=== PATIENT | male | born 1975 | race Caucasian/White ===

== ENCOUNTER 2018-04-04 13:07 | Inpatient (IN) | payer MEDICARE, MEDICAID ==
[2018-04-04] MEDS ORDERED: ZOLPIDEM TARTRATE 10 MG TABLET PO PRN (21:15)
[2018-04-04 21:44] VITALS: BP 140/77
[2018-04-04] MEDS ORDERED: PNEUMOCOCCAL VACCINE POLYVALENT 0.5 ML VIAL [PPSV23] IM ONE (21:45)
[2018-04-04] MEDS ORDERED: NICOTINE 14 MG/24 HOUR PATCH TD PRN (22:00)
[2018-04-04] MEDS ORDERED: MAGNESIUM HYDROXIDE SUSPENSION 30 ML UDCUP PO PRN (22:00)
[2018-04-04] MEDS ORDERED: GuaiFENesin/D-METHORPHAN [SUGAR-FREE] 200-20MG/10 ML SYRUP UDCUP PO PRN (22:00)
[2018-04-04] MEDS ORDERED: LOPERAMIDE HCL 2 MG CAPSULE PO PRN (22:00)
[2018-04-04] MEDS ORDERED: CloNIDine HCL 0.1 MG TABLET PO PRN (22:00)
[2018-04-04] MEDS ORDERED: MAG HYDROX/AL HYDROX/SIMETH ES 30 ML SUSPENSION UDCUP PO PRN (22:00)
[2018-04-04] MEDS ORDERED: ALBUTEROL SULFATE HFA 90 MCG/PUFF 8 GM INHALER IH PRN (22:00)
[2018-04-04] MEDS ORDERED: PETROLATUM,WHITE 71 GM JELLY TP PRN (22:00)
[2018-04-04] MEDS ORDERED: DOCUSATE SODIUM 100 MG CAPSULE PO PRN (22:00)
[2018-04-04] MEDS ORDERED: IBUPROFEN 400 MG TABLET PO PRN (22:00)
[2018-04-04] MEDS ORDERED: GLUCAGON,HUMAN RECOMBINANT 1 MG VIAL IM PRN (22:00)
[2018-04-04] MEDS ORDERED: ONDANSETRON HCL 4 MG TABLET PO PRN (22:00)
[2018-04-05 04:15] VITALS: BP 131/76
[2018-04-05] MEDS: INSULIN LISPRO 100 UNITS/ML SQ PRN ×4 (06:54→21:03)
[2018-04-05 07:54] LABS: BASOPHILS % (AUTO) 0.5 % (0.0-2.0); HEMOGLOBIN 16.4 g/dL (13.5-17.5); LYMPHOCYTES # (AUTO) 2.9 K/uL (1.0-4.8); LYMPHOCYTES % (AUTO) 34.6 % (22.0-44.0); MEAN CORPUSCULAR HEMOGLOBIN 27.7 pg (26.0-34.0); MEAN CORPUSCULAR HGB CONC 34.8 G/dL (31.0-37.0); MEAN CORPUSCULAR VOLUME 80 fL (80-100); MONOCYTES # (AUTO) 0.4 K/uL (0.1-1.0); MONOCYTES % (AUTO) 5.2 % (2.0-9.0); NEUTROPHILS # (AUTO) 4.9 K/uL (1.8-7.7); NEUTROPHILS % (AUTO) 57.7 % (40.0-70.0); PLATELET COUNT (AUTO) 296 K/uL (150-450); RED CELL DISTRIBUTION WIDTH 14.2 % (11.5-14.5)
[2018-04-05 08:21] VITALS: BP 140/62
[2018-04-05 08:21] LABS: HEMOGLOBIN A1C 7.8 % (4.5-6.2)
[2018-04-05 08:33] LABS: ALANINE AMINOTRANSFERASE 45 U/L (12-78); ALBUMIN 3.9 g/dL (3.4-5.0); ALKALINE PHOSPHATASE 100 U/L (46-116); ANION GAP 9 mmol/L (8-16); ASPARTATE AMINOTRANSFERASE 53 U/L (15-37); BILIRUBIN,TOTAL 0.7 mg/dL (0.1-1.0); CALCIUM, TOTAL 9.2 mg/dL (8.8-10.5); CARBON DIOXIDE 31 mmol/L (22-29); CHLORIDE 98 mmol/L (98-107); CHOLESTEROL 130 mg/dL (131-200); CREATININE 0.84 mg/dL (0.60-1.30); FREE T4 (FREE THYROXINE) 1.15 ng/dL (0.76-1.46); GLOMERULAR FILTR. RATE CALC > 60 mL/min (>60); GLUCOSE,RANDOM 186 mg/dL (70-110); HDL CHOLESTEROL 44 mg/dL (40-60); LDL CHOL (CALC.) 64 mg/dL (0-130); POTASSIUM 4.1 mmol/L (3.5-5.1); SODIUM SERUM 138 mmol/L (136-145); THYROID STIMULATING HORMONE 4.66 uIU/mL (0.36-3.74); TOTAL PROTEIN, SERUM 7.5 g/dL (6.4-8.2); TRIGLYCERIDES 110 mg/dL (15-150); UREA NITROGEN, BLOOD 12 mg/dL (7-18)
[2018-04-05] MEDS: HALOPERIDOL 5 MG TABLET PO PRN (09:02)
[2018-04-05] MEDS: LORazepam 2 MG TABLET PO PRN (09:03)
[2018-04-05 09:05] VITALS: BP 138/78
[2018-04-05 11:39] LABS: GLUCOMETER DEV NAME(LOC) BV2X.; GLUCOSE,POINT OF CARE 170 MG/DL (70-110)
[2018-04-05 16:00] VITALS: BP 153/88
[2018-04-05] MEDS: OLANZapine 10 MG TABLET PO SCH (16:32)
[2018-04-05] MEDS: MetFORMIN HCL 850 MG TABLET PO SCH (16:32)
[2018-04-05 17:00] LABS: GLUCOMETER DEV NAME(LOC) BV2X.; GLUCOSE,POINT OF CARE 151 MG/DL (70-110)
[2018-04-05 17:30] VITALS: BP 145/78
[2018-04-05 21:04] LABS: GLUCOMETER DEV NAME(LOC) BV2X.; GLUCOSE,POINT OF CARE 201 MG/DL (70-110)
[2018-04-05 22:10] VITALS: BP 142/77
[2018-04-05] MEDS: ACETAMINOPHEN 325 MG TABLET PO PRN (22:11)
[2018-04-06 04:40] VITALS: BP 111/73
[2018-04-06 06:19] LABS: GLUCOMETER DEV NAME(LOC) BV2X.; GLUCOSE,POINT OF CARE 194 MG/DL (70-110)
[2018-04-06] MEDS: MetFORMIN HCL 850 MG TABLET PO SCH ×2 (07:10→16:49)
[2018-04-06] MEDS: INSULIN LISPRO 100 UNITS/ML SQ PRN ×3 (07:11→22:01)
[2018-04-06 08:17] VITALS: BP 140/61
[2018-04-06] MEDS: OLANZapine 10 MG TABLET PO SCH ×2 (09:12→16:50)
[2018-04-06] MEDS: HALOPERIDOL 5 MG TABLET PO PRN ×2 (10:25→16:49)
[2018-04-06] MEDS: LORazepam 2 MG TABLET PO PRN ×2 (10:25→16:49)
[2018-04-06 11:34] LABS: GLUCOMETER DEV NAME(LOC) BV2X.; GLUCOSE,POINT OF CARE 115 MG/DL (70-110)
[2018-04-06 16:08] LABS: GLUCOMETER DEV NAME(LOC) BV2X.; GLUCOSE,POINT OF CARE 157 MG/DL (70-110)
[2018-04-06 16:28] VITALS: BP 140/89
[2018-04-06] MEDS: DIVALPROEX SODIUM 500 MG ER TABLET PO SCH (16:50)
[2018-04-07 03:15] VITALS: BP 138/82
[2018-04-07 06:19] LABS: GLUCOMETER DEV NAME(LOC) BV2X.; GLUCOSE,POINT OF CARE 140 MG/DL (70-110)
[2018-04-07] MEDS: MetFORMIN HCL 850 MG TABLET PO SCH ×2 (07:02→17:03)
[2018-04-07 08:10] VITALS: BP 152/87
[2018-04-07] MEDS: LORazepam 2 MG TABLET PO PRN ×2 (08:55→14:35)
[2018-04-07] MEDS: OLANZapine 10 MG TABLET PO SCH ×2 (08:55→17:03)
[2018-04-07] MEDS: DIVALPROEX SODIUM 500 MG ER TABLET PO SCH ×2 (08:55→17:03)
[2018-04-07] MEDS: HALOPERIDOL 5 MG TABLET PO PRN ×2 (10:22→14:35)
[2018-04-07] MEDS: INSULIN LISPRO 100 UNITS/ML SQ PRN ×3 (11:16→21:09)
[2018-04-07 11:19] LABS: GLUCOMETER DEV NAME(LOC) BV2X.; GLUCOSE,POINT OF CARE 173 MG/DL (70-110)
[2018-04-07 16:00] VITALS: BP 116/67
[2018-04-07 17:35] LABS: GLUCOMETER DEV NAME(LOC) BV2X.; GLUCOSE,POINT OF CARE 153 MG/DL (70-110)
[2018-04-07 21:49] LABS: GLUCOMETER DEV NAME(LOC) BV2X.; GLUCOSE,POINT OF CARE 144 MG/DL (70-110)
[2018-04-08 06:30] LABS: GLUCOMETER DEV NAME(LOC) BV2X.; GLUCOSE,POINT OF CARE 130 MG/DL (70-110)
[2018-04-08 06:57] VITALS: BP 126/78
[2018-04-08] MEDS: MetFORMIN HCL 850 MG TABLET PO SCH ×2 (07:10→16:43)
[2018-04-08 08:31] VITALS: BP 156/113
[2018-04-08] MEDS: HALOPERIDOL 5 MG TABLET PO PRN (09:06)
[2018-04-08] MEDS: OLANZapine 10 MG TABLET PO SCH ×2 (09:06→16:43)
[2018-04-08] MEDS: DIVALPROEX SODIUM 500 MG ER TABLET PO SCH ×2 (09:06→16:43)
[2018-04-08] MEDS: LORazepam 2 MG TABLET PO PRN (09:06)
[2018-04-08 09:57] VITALS: BP 134/85
[2018-04-08 11:30] LABS: GLUCOMETER DEV NAME(LOC) BV2X.; GLUCOSE,POINT OF CARE 133 MG/DL (70-110)
[2018-04-08 16:18] VITALS: BP 138/79
[2018-04-08 17:00] LABS: GLUCOMETER DEV NAME(LOC) BV2X.; GLUCOSE,POINT OF CARE 141 MG/DL (70-110)
[2018-04-08] MEDS: INSULIN LISPRO 100 UNITS/ML SQ PRN ×2 (17:00→21:08)
[2018-04-08 21:04] LABS: GLUCOMETER DEV NAME(LOC) BV2X.; GLUCOSE,POINT OF CARE 156 MG/DL (70-110)
[2018-04-09 05:56] VITALS: BP 132/83
[2018-04-09 06:24] LABS: GLUCOMETER DEV NAME(LOC) BV2X.; GLUCOSE,POINT OF CARE 126 MG/DL (70-110)
[2018-04-09] MEDS: MetFORMIN HCL 850 MG TABLET PO SCH ×2 (07:08→16:16)
[2018-04-09] MEDS: DIVALPROEX SODIUM 500 MG ER TABLET PO SCH ×2 (08:23→16:17)
[2018-04-09] MEDS: OLANZapine 10 MG TABLET PO SCH ×2 (08:23→16:17)
[2018-04-09 09:28] VITALS: BP 140/94
[2018-04-09] MEDS: LORazepam 2 MG TABLET PO PRN (11:27)
[2018-04-09] MEDS: HALOPERIDOL 5 MG TABLET PO PRN (11:27)
[2018-04-09 11:34] LABS: GLUCOMETER DEV NAME(LOC) BV2X.; GLUCOSE,POINT OF CARE 134 MG/DL (70-110)
[2018-04-09 16:09] VITALS: BP 158/103
[2018-04-09 16:38] LABS: GLUCOMETER DEV NAME(LOC) BV2X.; GLUCOSE,POINT OF CARE 118 MG/DL (70-110)
[2018-04-09 19:01] VITALS: BP 140/88
[2018-04-09] MEDS: INSULIN LISPRO 100 UNITS/ML SQ PRN (20:41)
[2018-04-09 20:44] LABS: GLUCOMETER DEV NAME(LOC) BV2X.; GLUCOSE,POINT OF CARE 165 MG/DL (70-110)
[2018-04-09 22:31] VITALS: BP 151/99
[2018-04-09] MEDS: ACETAMINOPHEN 325 MG TABLET PO PRN (22:31)
[2018-04-10 00:29] VITALS: BP 143/88
[2018-04-10 05:54] LABS: GLUCOMETER DEV NAME(LOC) BV2X.; GLUCOSE,POINT OF CARE 114 MG/DL (70-110)
[2018-04-10] MEDS: MetFORMIN HCL 850 MG TABLET PO SCH (06:02)
[2018-04-10 08:12] LABS: BASOPHILS % (AUTO) 0.4 % (0.0-2.0); EOSINOPHILS % (AUTO) 2.4 % (1.0-6.0); HEMATOCRIT 45.3 % (41-53); HEMOGLOBIN 15.4 g/dL (13.5-17.5); LYMPHOCYTES # (AUTO) 2.7 K/uL (1.0-4.8); LYMPHOCYTES % (AUTO) 38.5 % (22.0-44.0); MEAN CORPUSCULAR HEMOGLOBIN 27.5 pg (26.0-34.0); MEAN CORPUSCULAR VOLUME 81 fL (80-100); MONOCYTES # (AUTO) 0.3 K/uL (0.1-1.0); MONOCYTES % (AUTO) 4.7 % (2.0-9.0); NEUTROPHILS # (AUTO) 3.7 K/uL (1.8-7.7); PLATELET COUNT (AUTO) 230 K/uL (150-450); RED BLOOD CELL COUNT(AUTO) 5.61 MIL/uL (4.50-5.90); RED CELL DISTRIBUTION WIDTH 14.3 % (11.5-14.5)
[2018-04-10] MEDS: OLANZapine 10 MG TABLET PO SCH (08:16)
[2018-04-10] MEDS: DIVALPROEX SODIUM 500 MG ER TABLET PO SCH (08:16)
[2018-04-10] MEDS: ACETAMINOPHEN 325 MG TABLET PO PRN (08:22)
[2018-04-10 08:26] VITALS: BP 144/98
[2018-04-10 08:51] LABS: ALANINE AMINOTRANSFERASE 45 U/L (12-78); ALBUMIN 3.4 g/dL (3.4-5.0); ALKALINE PHOSPHATASE 82 U/L (46-116); ANION GAP 7 mmol/L (8-16); ASPARTATE AMINOTRANSFERASE 53 U/L (15-37); BILIRUBIN,TOTAL 0.6 mg/dL (0.1-1.0); CALCIUM, TOTAL 8.9 mg/dL (8.8-10.5); CARBON DIOXIDE 32 mmol/L (22-29); CHLORIDE 101 mmol/L (98-107); CREATININE 0.68 mg/dL (0.60-1.30); GLOMERULAR FILTR. RATE CALC > 60 mL/min (>60); GLUCOSE,RANDOM 136 mg/dL (70-110); POTASSIUM 4.1 mmol/L (3.5-5.1); SODIUM SERUM 140 mmol/L (136-145); TOTAL PROTEIN, SERUM 7.2 g/dL (6.4-8.2); UREA NITROGEN, BLOOD 13 mg/dL (7-18); VALPROIC ACID 56 mcg/mL (50-100)
[2018-04-10 11:29] LABS: GLUCOMETER DEV NAME(LOC) BV2X.; GLUCOSE,POINT OF CARE 113 MG/DL (70-110)
[2018-04-10] MEDS ORDERED: DIVA500T52 PO (12:36)
[2018-04-10] MEDS ORDERED: OLAN10TA3 PO (12:36)
[2018-04-10] MEDS ORDERED: METF-445 PO (12:36)
[2018-04-11] MEDS ORDERED: CLON.5 PO (00:31)
[2018-04-11] MEDS ORDERED: RISP.5 PO (00:31)
[2018-04-11] MEDS ORDERED: QUET200T PO (00:31)
== END 2018-04-10 14:20 | disposition home or self-care (01) | DRG 885 ==
LOC: EDSTATUS 13:08 → B2S 21:18
PROVIDERS: ADMIT Psychiatry & Neurology Child & Adolescent Psychiatry; ATTEND Psychiatry & Neurology Child & Adolescent Psychiatry
DX: F25.0 Schizoaffective disorder, bipolar type (principal); I10 Essential (primary) hypertension; F41.9 Anxiety disorder, unspecified; M54.9 Dorsalgia, unspecified; F12.90 Cannabis use, unspecified, uncomplicated; F14.90 Cocaine use, unspecified, uncomplicated; E11.9 Type 2 diabetes mellitus without complications; F10.10 Alcohol abuse, uncomplicated; E03.9 Hypothyroidism, unspecified; G89.29 Other chronic pain; F99 Mental disorder, not otherwise specified; Z59.0 Homelessness; Z91.5 Personal history of self-harm
CPT/HCPCS: 83036; 84439; 84443; 87081

== ENCOUNTER 2018-04-14 17:37 | Emergency (ER) | payer MEDICARE, OTHER ==
[~2018-04-14] VITALS: Ht 175.3 cm; Wt 154.5 kg
[~2018-04-14 17:37] MED LIST: AMLO-511 PO; BUPR-93 PO; CARV3 PO; CLON.5 PO; DIVA500T52 PO; METF-445 PO; OLAN10TA3 PO; QUET200T PO; RISP.5 PO
[2018-04-14 18:04] LABS: GLUCOSE,POINT OF CARE 215 MG/DL (70-110)
[2018-04-14 19:33] VITALS: BP 138/89
[2018-04-14] MEDS ORDERED: KETOROLAC TROMETHAMINE 60 MG/2 ML VIAL IM ONE (19:45)
== END 2018-04-14 20:06 | disposition home or self-care (01) ==
LOC: EMS 17:37
DX: M25.562 Pain in left knee (principal); M54.9 Dorsalgia, unspecified; F31.9 Bipolar disorder, unspecified; F20.9 Schizophrenia, unspecified; F17.210 Nicotine dependence, cigarettes, uncomplicated; Z79.84 Long term (current) use of oral hypoglycemic drugs; Z79.899 Other long term (current) drug therapy; W18.39XA Other fall on same level, initial encounter; Y93.01 Activity, walking, marching and hiking; Y92.89 Other specified places as the place of occurrence of the external cause; Y99.8 Other external cause status
CPT/HCPCS: 82962; 96372; 99283; J1885

== ENCOUNTER 2018-05-12 11:39 | Inpatient (IN) | payer MEDICARE, MEDICAID ==
[~2018-05-12 11:39] MED LIST changes: -BUPR-93 PO; -CLON.5 PO; -QUET200T PO; -RISP.5 PO
[2018-05-12] MEDS ORDERED: ZOLPIDEM TARTRATE 10 MG TABLET PO PRN (19:45)
[2018-05-12] MEDS ORDERED: LORazepam 2 MG TABLET PO PRN (19:45)
[2018-05-12 19:51] VITALS: BP 132/72
[2018-05-12] MEDS ORDERED: PNEUMOCOCCAL VACCINE POLYVALENT 0.5 ML VIAL [PPSV23] IM ONE (20:00)
[2018-05-12] MEDS ORDERED: CloNIDine HCL 0.1 MG TABLET PO PRN (21:30)
[2018-05-12] MEDS ORDERED: ACETAMINOPHEN 325 MG TABLET PO PRN (21:30)
[2018-05-12] MEDS ORDERED: GLUCAGON,HUMAN RECOMBINANT 1 MG VIAL IM PRN (21:30)
[2018-05-12] MEDS ORDERED: MAG HYDROX/AL HYDROX/SIMETH ES 30 ML SUSPENSION UDCUP PO PRN (21:30)
[2018-05-12] MEDS ORDERED: ONDANSETRON HCL 4 MG TABLET PO PRN (21:30)
[2018-05-12] MEDS ORDERED: ALBUTEROL SULFATE HFA 90 MCG/PUFF 8 GM INHALER IH PRN (21:30)
[2018-05-12] MEDS ORDERED: GuaiFENesin/D-METHORPHAN [SUGAR-FREE] 200-20MG/10 ML SYRUP UDCUP PO PRN (21:30)
[2018-05-12] MEDS ORDERED: NICOTINE 14 MG/24 HOUR PATCH TD PRN (21:30)
[2018-05-12] MEDS ORDERED: MAGNESIUM HYDROXIDE SUSPENSION 30 ML UDCUP PO PRN (21:30)
[2018-05-12] MEDS ORDERED: PETROLATUM,WHITE 71 GM JELLY TP PRN (21:30)
[2018-05-12] MEDS ORDERED: IBUPROFEN 400 MG TABLET PO PRN (21:30)
[2018-05-12] MEDS ORDERED: DOCUSATE SODIUM 100 MG CAPSULE PO PRN (21:30)
[2018-05-12] MEDS ORDERED: LOPERAMIDE HCL 2 MG CAPSULE PO PRN (21:30)
[2018-05-12] MEDS: INSULIN LISPRO 100 UNITS/ML SQ PRN (21:42)
[2018-05-13 02:48] VITALS: BP 171/90
[2018-05-13 03:50] VITALS: BP 140/70
[2018-05-13 06:29] LABS: GLUCOMETER DEV NAME(LOC) BV3N.; GLUCOSE,POINT OF CARE 304 MG/DL (70-110)
[2018-05-13] MEDS: MetFORMIN HCL 850 MG TABLET PO SCH ×2 (06:32→16:59)
[2018-05-13] MEDS: INSULIN LISPRO 100 UNITS/ML SQ PRN ×4 (06:48→21:00)
[2018-05-13 08:00] VITALS: BP 144/92
[2018-05-13 08:22] LABS: BASOPHILS % (AUTO) 0.4 % (0.0-2.0); EOSINOPHILS % (AUTO) 2.5 % (1.0-6.0); HEMATOCRIT 45.4 % (41-53); HEMOGLOBIN 15.3 g/dL (13.5-17.5); LYMPHOCYTES # (AUTO) 2.7 K/uL (1.0-4.8); LYMPHOCYTES % (AUTO) 35.2 % (22.0-44.0); MEAN CORPUSCULAR HEMOGLOBIN 26.5 pg (26.0-34.0); MEAN CORPUSCULAR HGB CONC 33.8 G/dL (31.0-37.0); MEAN CORPUSCULAR VOLUME 79 fL (80-100); MONOCYTES # (AUTO) 0.3 K/uL (0.1-1.0); MONOCYTES % (AUTO) 3.8 % (2.0-9.0); NEUTROPHILS # (AUTO) 4.5 K/uL (1.8-7.7); NEUTROPHILS % (AUTO) 58.1 % (40.0-70.0); PLATELET COUNT (AUTO) 224 K/uL (150-450); RED BLOOD CELL COUNT(AUTO) 5.78 MIL/uL (4.50-5.90); RED CELL DISTRIBUTION WIDTH 14.2 % (11.5-14.5)
[2018-05-13 08:34] LABS: HEMOGLOBIN A1C 8.6 % (4.5-6.2)
[2018-05-13 08:51] LABS: ALANINE AMINOTRANSFERASE 37 U/L (12-78); ALBUMIN 3.2 g/dL (3.4-5.0); ALKALINE PHOSPHATASE 91 U/L (46-116); ANION GAP 5 mmol/L (8-16); ASPARTATE AMINOTRANSFERASE 45 U/L (15-37); BILIRUBIN,TOTAL 0.5 mg/dL (0.1-1.0); CALCIUM, TOTAL 9.2 mg/dL (8.8-10.5); CARBON DIOXIDE 32 mmol/L (22-29); CHLORIDE 96 mmol/L (98-107); CHOL/HDL RATIO 2.7 (4.2-7.3); CHOLESTEROL 110 mg/dL (131-200); CREATININE 0.74 mg/dL (0.60-1.30); FREE T4 (FREE THYROXINE) 1.17 ng/dL (0.76-1.46); GLOMERULAR FILTR. RATE CALC > 60 mL/min (>60); GLUCOSE,RANDOM 231 mg/dL (70-110); HDL CHOLESTEROL 41 mg/dL (40-60); LDL CHOL (CALC.) 40 mg/dL (0-130); POTASSIUM 3.5 mmol/L (3.5-5.1); SODIUM SERUM 133 mmol/L (136-145); THYROID STIMULATING HORMONE 5.16 uIU/mL (0.36-3.74); TRIGLYCERIDES 146 mg/dL (15-150); UREA NITROGEN, BLOOD 20 mg/dL (7-18)
[2018-05-13] MEDS: CARVEDILOL 3.125 MG TABLET PO SCH ×2 (09:08→16:58)
[2018-05-13] MEDS: HALOPERIDOL 5 MG TABLET PO PRN ×2 (09:08→16:59)
[2018-05-13] MEDS: AmLODIPine BESYLATE 5 MG TABLET PO SCH (09:08)
[2018-05-13 11:09] LABS: GLUCOMETER DEV NAME(LOC) BV3N.; GLUCOSE,POINT OF CARE 229 MG/DL (70-110)
[2018-05-13 16:04] VITALS: BP 135/85
[2018-05-13 16:55] LABS: GLUCOMETER DEV NAME(LOC) BV3N.; GLUCOSE,POINT OF CARE 224 MG/DL (70-110)
[2018-05-13] MEDS: OLANZapine 10 MG TABLET PO SCH (16:58)
[2018-05-13] MEDS: DIVALPROEX SODIUM 500 MG ER TABLET PO SCH (16:58)
[2018-05-13 21:09] LABS: GLUCOMETER DEV NAME(LOC) BV3N.; GLUCOSE,POINT OF CARE 197 MG/DL (70-110)
[2018-05-14 05:20] VITALS: BP 129/82
[2018-05-14 06:10] LABS: GLUCOMETER DEV NAME(LOC) BV3N.; GLUCOSE,POINT OF CARE 185 MG/DL (70-110)
[2018-05-14] MEDS: MetFORMIN HCL 850 MG TABLET PO SCH ×2 (06:10→16:23)
[2018-05-14] MEDS: INSULIN LISPRO 100 UNITS/ML SQ PRN ×4 (06:21→21:06)
[2018-05-14] MEDS: DIVALPROEX SODIUM 500 MG ER TABLET PO SCH ×2 (09:18→16:23)
[2018-05-14] MEDS: CARVEDILOL 3.125 MG TABLET PO SCH ×2 (09:18→16:23)
[2018-05-14] MEDS: AmLODIPine BESYLATE 5 MG TABLET PO SCH (09:18)
[2018-05-14] MEDS: OLANZapine 10 MG TABLET PO SCH ×2 (09:18→16:23)
[2018-05-14 11:30] LABS: GLUCOMETER DEV NAME(LOC) BV3N.; GLUCOSE,POINT OF CARE 156 MG/DL (70-110)
[2018-05-14] MEDS: HALOPERIDOL 5 MG TABLET PO PRN (13:46)
[2018-05-14 16:29] VITALS: BP 157/83
[2018-05-14 17:10] LABS: GLUCOMETER DEV NAME(LOC) BV3N.; GLUCOSE,POINT OF CARE 198 MG/DL (70-110)
[2018-05-14 21:24] LABS: GLUCOMETER DEV NAME(LOC) BV3N.; GLUCOSE,POINT OF CARE 188 MG/DL (70-110)
[2018-05-15 01:44] VITALS: BP 142/90
[2018-05-15] MEDS: MetFORMIN HCL 850 MG TABLET PO SCH (06:34)
[2018-05-15] MEDS: INSULIN LISPRO 100 UNITS/ML SQ PRN (06:44)
[2018-05-15 08:03] VITALS: BP 140/82
[2018-05-15] MEDS: DIVALPROEX SODIUM 500 MG ER TABLET PO SCH (08:26)
[2018-05-15] MEDS: OLANZapine 10 MG TABLET PO SCH (08:26)
[2018-05-15] MEDS: CARVEDILOL 3.125 MG TABLET PO SCH (08:26)
[2018-05-15] MEDS: AmLODIPine BESYLATE 5 MG TABLET PO SCH (08:27)
[2018-05-15 11:59] LABS: GLUCOMETER DEV NAME(LOC) BV3N.; GLUCOSE,POINT OF CARE 138 MG/DL (70-110)
== END 2018-05-15 13:45 | disposition home or self-care (01) | DRG 885 ==
LOC: B3A 19:36
PROVIDERS: ADMIT Psychiatry & Neurology Child & Adolescent Psychiatry; ATTEND Psychiatry & Neurology Child & Adolescent Psychiatry
DX: F25.9 Schizoaffective disorder, unspecified (principal); E87.1 Hypo-osmolality and hyponatremia; I10 Essential (primary) hypertension; E11.9 Type 2 diabetes mellitus without complications; G89.29 Other chronic pain; M54.9 Dorsalgia, unspecified; F41.9 Anxiety disorder, unspecified; F12.90 Cannabis use, unspecified, uncomplicated; F14.90 Cocaine use, unspecified, uncomplicated; Y90.9 Presence of alcohol in blood, level not specified; E03.9 Hypothyroidism, unspecified; F10.10 Alcohol abuse, uncomplicated; Z71.41 Alcohol abuse counseling and surveillance of alcoholic
CPT/HCPCS: 83036; 84439; 84443; 87081; 90686; 90732

== ENCOUNTER 2018-05-15 18:53 | Emergency (ER) | payer MEDICARE, OTHER ==
[~2018-05-15] VITALS: Ht 165.1 cm; Wt 159.1 kg
[2018-05-15 20:29] LABS: GLUCOSE,POINT OF CARE 238 MG/DL (70-110)
[2018-05-15 22:36] LABS: BASOPHILS % (AUTO) 0.7 % (0.0-2.0); EOSINOPHILS % (AUTO) 1.2 % (1.0-6.0); HEMATOCRIT 46.4 % (41-53); HEMOGLOBIN 15.6 g/dL (13.5-17.5); LYMPHOCYTES # (AUTO) 2.4 K/uL (1.0-4.8); LYMPHOCYTES % (AUTO) 22.9 % (22.0-44.0); MEAN CORPUSCULAR HEMOGLOBIN 26.6 pg (26.0-34.0); MEAN CORPUSCULAR HGB CONC 33.6 G/dL (31.0-37.0); MEAN CORPUSCULAR VOLUME 79 fL (80-100); MONOCYTES # (AUTO) 0.5 K/uL (0.1-1.0); MONOCYTES % (AUTO) 4.6 % (2.0-9.0); NEUTROPHILS # (AUTO) 7.5 K/uL (1.8-7.7); NEUTROPHILS % (AUTO) 70.6 % (40.0-70.0); PLATELET COUNT (AUTO) 235 K/uL (150-450); RED BLOOD CELL COUNT(AUTO) 5.84 MIL/uL (4.50-5.90); RED CELL DISTRIBUTION WIDTH 14.4 % (11.5-14.5)
[2018-05-15] MEDS ORDERED: KETOROLAC TROMETHAMINE 60 MG/2 ML VIAL IM ONE (22:45)
[2018-05-15 22:46] VITALS: BP 141/83
[2018-05-15 22:47] LABS: ANION GAP 10 mmol/L (8-16); CALCIUM, TOTAL 9.2 mg/dL (8.8-10.5); CARBON DIOXIDE 25 mmol/L (22-29); CHLORIDE 98 mmol/L (98-107); CREATININE 0.83 mg/dL (0.60-1.30); GLOMERULAR FILTR. RATE CALC > 60 mL/min (>60); GLUCOSE,RANDOM 290 mg/dL (70-110); SODIUM SERUM 133 mmol/L (136-145); UREA NITROGEN, BLOOD 19 mg/dL (7-18)
[2018-05-15 22:53] LABS: ALANINE AMINOTRANSFERASE 36 U/L (12-78); ALBUMIN 3.4 g/dL (3.4-5.0); ALKALINE PHOSPHATASE 98 U/L (46-116); ASPARTATE AMINOTRANSFERASE 39 U/L (15-37); BILIRUBIN,TOTAL 0.6 mg/dL (0.1-1.0); LIPASE 185 U/L (73-393)
== END 2018-05-15 23:23 | disposition home or self-care (01) ==
LOC: EMS 18:54
DX: R10.84 Generalized abdominal pain (principal); M54.5 Low back pain; G89.29 Other chronic pain; E11.9 Type 2 diabetes mellitus without complications; I10 Essential (primary) hypertension; F41.9 Anxiety disorder, unspecified; F31.9 Bipolar disorder, unspecified; F20.9 Schizophrenia, unspecified; F17.210 Nicotine dependence, cigarettes, uncomplicated; F12.90 Cannabis use, unspecified, uncomplicated; F14.90 Cocaine use, unspecified, uncomplicated; Z79.899 Other long term (current) drug therapy; Z79.84 Long term (current) use of oral hypoglycemic drugs
CPT/HCPCS: 80053; 82962; 83690; 85025; 96372; 99283; J1885

== ENCOUNTER 2018-05-16 03:35 | Emergency (ER) | payer MEDICARE, MEDICAID ==
[~2018-05-16] VITALS: Ht 172.7 cm; Wt 140.0 kg
[2018-05-16 03:39] VITALS: BP 138/98
== END 2018-05-16 05:45 | disposition left against medical advice (07) ==
LOC: EMS 03:35
DX: F32.9 Major depressive disorder, single episode, unspecified (principal); F41.9 Anxiety disorder, unspecified; F31.9 Bipolar disorder, unspecified; E11.9 Type 2 diabetes mellitus without complications; I10 Essential (primary) hypertension; F20.9 Schizophrenia, unspecified; F17.210 Nicotine dependence, cigarettes, uncomplicated; F12.90 Cannabis use, unspecified, uncomplicated; F14.90 Cocaine use, unspecified, uncomplicated; G89.29 Other chronic pain; Z53.21 Procedure and treatment not carried out due to patient leaving prior to being seen by health care provider

== ENCOUNTER 2018-05-16 12:51 | Emergency (ER) | payer MEDICARE, OTHER ==
[~2018-05-16] VITALS: Ht 172.7 cm; Wt 144.7 kg
[2018-05-16 13:43] LABS: GLUCOSE,POINT OF CARE 343 MG/DL (70-110)
[2018-05-16 14:43] LABS: ANION GAP 0 mmol/L (8-16); CALCIUM, TOTAL 8.7 mg/dL (8.8-10.5); CARBON DIOXIDE 35 mmol/L (22-29); CHLORIDE 99 mmol/L (98-107); CREATININE 0.79 mg/dL (0.60-1.30); GLOMERULAR FILTR. RATE CALC > 60 mL/min (>60); GLUCOSE,RANDOM 318 mg/dL (70-110); POTASSIUM 3.9 mmol/L (3.5-5.1); SODIUM SERUM 134 mmol/L (136-145); UREA NITROGEN, BLOOD 18 mg/dL (7-18)
[2018-05-16 14:49] LABS: ALANINE AMINOTRANSFERASE 43 U/L (12-78); ALBUMIN 3.1 g/dL (3.4-5.0); ALKALINE PHOSPHATASE 80 U/L (46-116); ASPARTATE AMINOTRANSFERASE 51 U/L (15-37); BILIRUBIN,TOTAL 0.4 mg/dL (0.1-1.0); TOTAL PROTEIN, SERUM 6.6 g/dL (6.4-8.2)
[2018-05-16 16:00] VITALS: BP 175/115
[2018-05-16] MEDS ORDERED: MetFORMIN HCL 850 MG TABLET PO ONE (16:00)
[2018-05-16] MEDS ORDERED: AmLODIPine BESYLATE 5 MG TABLET PO ONE (16:00)
[2018-05-16] MEDS ORDERED: DIVALPROEX SODIUM 250 MG DR TABLET PO ONE (16:00)
[2018-05-16] MEDS ORDERED: OLANZapine 5 MG TABLET PO ONE (16:00)
[2018-05-16 16:03] LABS: BASOPHILS % (AUTO) 0.3 % (0.0-2.0); EOSINOPHILS % (AUTO) 1.5 % (1.0-6.0); HEMATOCRIT 43.4 % (41-53); HEMOGLOBIN 14.5 g/dL (13.5-17.5); LYMPHOCYTES # (AUTO) 2.5 K/uL (1.0-4.8); LYMPHOCYTES % (AUTO) 33.7 % (22.0-44.0); MEAN CORPUSCULAR HEMOGLOBIN 26.8 pg (26.0-34.0); MEAN CORPUSCULAR HGB CONC 33.4 G/dL (31.0-37.0); MEAN CORPUSCULAR VOLUME 80 fL (80-100); MONOCYTES # (AUTO) 0.4 K/uL (0.1-1.0); MONOCYTES % (AUTO) 5.7 % (2.0-9.0); NEUTROPHILS # (AUTO) 4.4 K/uL (1.8-7.7); NEUTROPHILS % (AUTO) 58.8 % (40.0-70.0); PLATELET COUNT (AUTO) 222 K/uL (150-450); RED BLOOD CELL COUNT(AUTO) 5.41 MIL/uL (4.50-5.90); RED CELL DISTRIBUTION WIDTH 14.3 % (11.5-14.5)
[2018-05-16 16:12] LABS: AMPHET/METH SCREEN,URINE NEGATIVE (NEGATIVE); BARBITURATE SCREEN, URINE NEGATIVE (NEGATIVE); BENZODIAZEPINES SCREEN,URINE NEGATIVE (NEGATIVE); CANNABINOID SCREEN,URINE POSITIVE (NEGATIVE); COCAINE SCREEN,URINE NEGATIVE (NEGATIVE); METHADONE SCREEN, URINE NEGATIVE (NEGATIVE); OPIATE SCREEN,URINE NEGATIVE (NEGATIVE)
[2018-05-16 16:13] LABS: PHENCYCLIDINE SCREEN,URINE NEGATIVE (NEGATIVE)
== END 2018-05-16 17:04 | disposition home or self-care (01) ==
LOC: EMS 12:52
DX: F20.9 Schizophrenia, unspecified (principal); F17.210 Nicotine dependence, cigarettes, uncomplicated; F12.90 Cannabis use, unspecified, uncomplicated; F14.90 Cocaine use, unspecified, uncomplicated; F41.9 Anxiety disorder, unspecified; F32.9 Major depressive disorder, single episode, unspecified; E11.9 Type 2 diabetes mellitus without complications; I10 Essential (primary) hypertension; Z79.84 Long term (current) use of oral hypoglycemic drugs; Z79.899 Other long term (current) drug therapy
CPT/HCPCS: 36415; 80053; 80307; 82962; 85025; 99284; G0480

== ENCOUNTER 2018-05-16 19:32 | Inpatient (IN) | payer MEDICARE, MEDICAID ==
[~2018-05-16] VITALS: Ht 177.8 cm; Wt 127.1 kg
[2018-05-17 01:27] LABS: BASOPHILS % (AUTO) 0.6 % (0.0-2.0); EOSINOPHILS % (AUTO) 2.7 % (1.0-6.0); HEMATOCRIT 43.6 % (41-53); HEMOGLOBIN 14.4 g/dL (13.5-17.5); LYMPHOCYTES # (AUTO) 3.1 K/uL (1.0-4.8); LYMPHOCYTES % (AUTO) 42.9 % (22.0-44.0); MEAN CORPUSCULAR HEMOGLOBIN 26.5 pg (26.0-34.0); MEAN CORPUSCULAR HGB CONC 33.2 G/dL (31.0-37.0); MEAN CORPUSCULAR VOLUME 80 fL (80-100); MONOCYTES # (AUTO) 0.4 K/uL (0.1-1.0); MONOCYTES % (AUTO) 5.1 % (2.0-9.0); NEUTROPHILS # (AUTO) 3.6 K/uL (1.8-7.7); NEUTROPHILS % (AUTO) 48.7 % (40.0-70.0); PLATELET COUNT (AUTO) 212 K/uL (150-450); RED BLOOD CELL COUNT(AUTO) 5.46 MIL/uL (4.50-5.90)
[2018-05-17 01:30] LABS: AMPHET/METH SCREEN,URINE NEGATIVE (NEGATIVE); BARBITURATE SCREEN, URINE NEGATIVE (NEGATIVE); BENZODIAZEPINES SCREEN,URINE NEGATIVE (NEGATIVE); CANNABINOID SCREEN,URINE POSITIVE (NEGATIVE); COCAINE SCREEN,URINE NEGATIVE (NEGATIVE); METHADONE SCREEN, URINE NEGATIVE (NEGATIVE); OPIATE SCREEN,URINE NEGATIVE (NEGATIVE); PHENCYCLIDINE SCREEN,URINE NEGATIVE (NEGATIVE)
[2018-05-17 01:32] LABS: ANION GAP 6 mmol/L (8-16); CALCIUM, TOTAL 8.4 mg/dL (8.8-10.5); CARBON DIOXIDE 32 mmol/L (22-29); CHLORIDE 99 mmol/L (98-107); CREATININE 0.74 mg/dL (0.60-1.30); GLOMERULAR FILTR. RATE CALC > 60 mL/min (>60); GLUCOSE,RANDOM 335 mg/dL (70-110); POTASSIUM 3.7 mmol/L (3.5-5.1); SODIUM SERUM 137 mmol/L (136-145); UREA NITROGEN, BLOOD 14 mg/dL (7-18)
[2018-05-17 01:38] LABS: ALANINE AMINOTRANSFERASE 43 U/L (12-78); ALBUMIN 3.1 g/dL (3.4-5.0); ALKALINE PHOSPHATASE 80 U/L (46-116); ASPARTATE AMINOTRANSFERASE 49 U/L (15-37); BILIRUBIN,TOTAL 0.5 mg/dL (0.1-1.0); TOTAL PROTEIN, SERUM 6.6 g/dL (6.4-8.2); VALPROIC ACID 32 mcg/mL (50-100)
[2018-05-17] MEDS ORDERED: INSULIN REGULAR, HUMAN 100 UNITS/ML SQ ONE (02:15)
[2018-05-17] MEDS ORDERED: ZOLPIDEM TARTRATE 10 MG TABLET PO PRN (02:15)
[2018-05-17 03:31] LABS: APPEARANCE,URINE CLEAR (CLEAR); BILIRUBIN,URINE NEGATIVE (NEGATIVE); GLUCOSE, URINE (UA) >=1000 mg/dL (NEGATIVE); KETONES,URINE NEGATIVE (NEGATIVE); LEUKOCYTE ESTERASE ,URINE NEGATIVE (NEGATIVE); NITRATE,URINE NEGATIVE (NEGATIVE); OCCULT BLOOD,URINE NEGATIVE (NEGATIVE); PH,URINE 6.5 (5.0-8.0); PROTEIN,URINE NEGATIVE (NEGATIVE); UROBILINOGEN,URINE 0.2 mg/dL (<=1.0)
[2018-05-17 03:44] LABS: BACTERIA,URINE Rare /HPF (None Seen); MUCUS,URINE Few LPF (None Seen); RBC,URINE 0-2 /HPF (0-2); SQUAMOUS EPITHELIAL CELL,UR Few /LPF (None Seen); WBC,URINE 0-2 /HPF (0-5)
[2018-05-17 03:46] VITALS: BP 153/91
[2018-05-17 06:30] LABS: GLUCOMETER DEV NAME(LOC) 3EX.; GLUCOSE,POINT OF CARE 280 MG/DL (70-110)
[2018-05-17] MEDS ORDERED: PNEUMOCOCCAL VACCINE POLYVALENT 0.5 ML VIAL [PPSV23] IM ONE (06:30)
[2018-05-17] MEDS: LORazepam 2 MG TABLET PO PRN (08:36)
[2018-05-17] MEDS: HALOPERIDOL 5 MG TABLET PO PRN (08:36)
[2018-05-17] MEDS: OLANZapine 10 MG TABLET PO SCH ×2 (09:40→16:52)
[2018-05-17] MEDS: DIVALPROEX SODIUM 500 MG ER TABLET PO SCH ×2 (09:40→16:52)
[2018-05-18] MEDS ORDERED: AmLODIPine BESYLATE 5 MG TABLET PO ONE (06:15)
[2018-05-18] MEDS ORDERED: DEXTROSE 50%-WATER 25 GM/50 ML SYRINGE IVP PRN (06:15)
[2018-05-18 06:25] LABS: GLUCOMETER DEV NAME(LOC) 3EX.; GLUCOSE,POINT OF CARE 242 MG/DL (70-110)
[2018-05-18] MEDS: INSULIN LISPRO 100 UNITS/ML SQ PRN ×4 (06:36→21:15)
[2018-05-18] MEDS: MetFORMIN HCL 850 MG TABLET PO SCH ×2 (07:19→16:18)
[2018-05-18 08:11] VITALS: BP 160/100
[2018-05-18] MEDS: DIVALPROEX SODIUM 500 MG ER TABLET PO SCH ×2 (08:39→16:18)
[2018-05-18] MEDS: OLANZapine 10 MG TABLET PO SCH ×2 (08:39→16:17)
[2018-05-18] MEDS: CARVEDILOL 3.125 MG TABLET PO SCH ×2 (08:39→16:18)
[2018-05-18] MEDS: HALOPERIDOL 5 MG TABLET PO PRN ×2 (10:28→17:24)
[2018-05-18] MEDS: LORazepam 2 MG TABLET PO PRN ×2 (10:28→17:24)
[2018-05-18 10:59] LABS: GLUCOMETER DEV NAME(LOC) 3EX.; GLUCOSE,POINT OF CARE 161 MG/DL (70-110)
[2018-05-18 16:24] LABS: GLUCOMETER DEV NAME(LOC) 3EX.; GLUCOSE,POINT OF CARE 162 MG/DL (70-110)
[2018-05-18 16:46] VITALS: BP 161/93
[2018-05-18] MEDS ORDERED: MAGNESIUM HYDROXIDE SUSPENSION 30 ML UDCUP PO PRN (17:45)
[2018-05-18] MEDS ORDERED: ALBUTEROL SULFATE HFA 90 MCG/PUFF 8 GM INHALER IH PRN (17:45)
[2018-05-18] MEDS ORDERED: LOPERAMIDE HCL 2 MG CAPSULE PO PRN (17:45)
[2018-05-18] MEDS ORDERED: MAG HYDROX/AL HYDROX/SIMETH ES 30 ML SUSPENSION UDCUP PO PRN (17:45)
[2018-05-18] MEDS ORDERED: ONDANSETRON HCL 4 MG TABLET PO PRN (17:45)
[2018-05-18] MEDS ORDERED: DOCUSATE SODIUM 100 MG CAPSULE PO PRN (17:45)
[2018-05-18] MEDS ORDERED: GuaiFENesin/D-METHORPHAN [SUGAR-FREE] 200-20MG/10 ML SYRUP UDCUP PO PRN (17:45)
[2018-05-18] MEDS ORDERED: NICOTINE 14 MG/24 HOUR PATCH TD PRN (17:45)
[2018-05-18] MEDS ORDERED: ACETAMINOPHEN 325 MG TABLET PO PRN (17:45)
[2018-05-18] MEDS ORDERED: IBUPROFEN 400 MG TABLET PO PRN (17:45)
[2018-05-18] MEDS ORDERED: PETROLATUM,WHITE 71 GM JELLY TP PRN (17:45)
[2018-05-18 21:04] LABS: GLUCOMETER DEV NAME(LOC) 3EX.; GLUCOSE,POINT OF CARE 162 MG/DL (70-110)
[2018-05-19 03:57] VITALS: BP 135/90
[2018-05-19 06:13] LABS: BASOPHILS % (AUTO) 0.8 % (0.0-2.0); EOSINOPHILS % (AUTO) 2.5 % (1.0-6.0); HEMATOCRIT 41.1 % (41-53); HEMOGLOBIN 14.2 g/dL (13.5-17.5); LYMPHOCYTES # (AUTO) 2.7 K/uL (1.0-4.8); LYMPHOCYTES % (AUTO) 38.9 % (22.0-44.0); MEAN CORPUSCULAR HEMOGLOBIN 27.5 pg (26.0-34.0); MEAN CORPUSCULAR HGB CONC 34.6 G/dL (31.0-37.0); MEAN CORPUSCULAR VOLUME 80 fL (80-100); MONOCYTES # (AUTO) 0.4 K/uL (0.1-1.0); MONOCYTES % (AUTO) 5.3 % (2.0-9.0); NEUTROPHILS # (AUTO) 3.6 K/uL (1.8-7.7); NEUTROPHILS % (AUTO) 52.5 % (40.0-70.0); PLATELET COUNT (AUTO) 202 K/uL (150-450); RED BLOOD CELL COUNT(AUTO) 5.17 MIL/uL (4.50-5.90); RED CELL DISTRIBUTION WIDTH 14.3 % (11.5-14.5)
[2018-05-19 06:14] LABS: GLUCOMETER DEV NAME(LOC) 3EX.; GLUCOSE,POINT OF CARE 281 MG/DL (70-110)
[2018-05-19 06:22] LABS: HEMOGLOBIN A1C 8.6 % (4.5-6.2)
[2018-05-19 06:46] LABS: ALANINE AMINOTRANSFERASE 39 U/L (12-78); ALBUMIN 2.8 g/dL (3.4-5.0); ALKALINE PHOSPHATASE 81 U/L (46-116); ANION GAP 2 mmol/L (8-16); ASPARTATE AMINOTRANSFERASE 35 U/L (15-37); BILIRUBIN,TOTAL 0.5 mg/dL (0.1-1.0); CALCIUM, TOTAL 8.7 mg/dL (8.8-10.5); CARBON DIOXIDE 35 mmol/L (22-29); CHLORIDE 98 mmol/L (98-107); CREATININE 0.81 mg/dL (0.60-1.30); GLOMERULAR FILTR. RATE CALC > 60 mL/min (>60); GLUCOSE,RANDOM 290 mg/dL (70-110); HDL CHOLESTEROL 41 mg/dL (40-60); POTASSIUM 3.9 mmol/L (3.5-5.1); SODIUM SERUM 135 mmol/L (136-145); THYROID STIMULATING HORMONE 3.14 uIU/mL (0.36-3.74); TOTAL PROTEIN, SERUM 6.4 g/dL (6.4-8.2); TRIGLYCERIDES 120 mg/dL (15-150); UREA NITROGEN, BLOOD 19 mg/dL (7-18)
[2018-05-19] MEDS: INSULIN LISPRO 100 UNITS/ML SQ PRN ×4 (07:07→22:03)
[2018-05-19] MEDS: MetFORMIN HCL 850 MG TABLET PO SCH ×2 (07:08→17:32)
[2018-05-19 07:10] LABS: CHOL/HDL RATIO 2.7 (4.2-7.3); CHOLESTEROL 111 mg/dL (131-200); LDL CHOL (CALC.) 46 mg/dL (0-130)
[2018-05-19] MEDS: DIVALPROEX SODIUM 500 MG ER TABLET PO SCH ×2 (10:09→17:32)
[2018-05-19] MEDS: OLANZapine 10 MG TABLET PO SCH ×2 (10:09→17:32)
[2018-05-19] MEDS: CARVEDILOL 3.125 MG TABLET PO SCH ×2 (10:09→17:32)
[2018-05-19 11:19] LABS: GLUCOMETER DEV NAME(LOC) 3EX.; GLUCOSE,POINT OF CARE 169 MG/DL (70-110)
[2018-05-19] MEDS: LORazepam 2 MG TABLET PO PRN (13:16)
[2018-05-19 16:00] VITALS: BP 162/84
[2018-05-19 16:29] LABS: GLUCOMETER DEV NAME(LOC) 3EX.; GLUCOSE,POINT OF CARE 176 MG/DL (70-110)
[2018-05-19 22:09] LABS: GLUCOMETER DEV NAME(LOC) 3EX.; GLUCOSE,POINT OF CARE 264 MG/DL (70-110)
[2018-05-20 05:45] LABS: GLUCOMETER DEV NAME(LOC) 3EX.; GLUCOSE,POINT OF CARE 183 MG/DL (70-110)
[2018-05-20] MEDS: INSULIN LISPRO 100 UNITS/ML SQ PRN ×4 (06:37→21:07)
[2018-05-20] MEDS: MetFORMIN HCL 850 MG TABLET PO SCH ×2 (06:37→17:39)
[2018-05-20] MEDS: CARVEDILOL 3.125 MG TABLET PO SCH ×2 (09:39→17:39)
[2018-05-20] MEDS: OLANZapine 10 MG TABLET PO SCH ×2 (09:39→17:39)
[2018-05-20] MEDS: DIVALPROEX SODIUM 500 MG ER TABLET PO SCH ×2 (09:39→17:39)
[2018-05-20] MEDS: LORazepam 2 MG TABLET PO PRN ×2 (11:46→17:57)
[2018-05-20] MEDS: HALOPERIDOL 5 MG TABLET PO PRN ×2 (11:46→17:57)
[2018-05-20 12:14] LABS: GLUCOMETER DEV NAME(LOC) 3EX.; GLUCOSE,POINT OF CARE 206 MG/DL (70-110)
[2018-05-20 16:34] LABS: GLUCOMETER DEV NAME(LOC) 3EX.; GLUCOSE,POINT OF CARE 160 MG/DL (70-110)
[2018-05-20 21:09] LABS: GLUCOMETER DEV NAME(LOC) 3EX.; GLUCOSE,POINT OF CARE 225 MG/DL (70-110)
[2018-05-21 05:39] LABS: GLUCOMETER DEV NAME(LOC) 3EX.; GLUCOSE,POINT OF CARE 177 MG/DL (70-110)
[2018-05-21] MEDS: HALOPERIDOL 5 MG TABLET PO PRN ×2 (05:53→20:50)
[2018-05-21 05:59] VITALS: BP 158/110
[2018-05-21] MEDS: MetFORMIN HCL 850 MG TABLET PO SCH ×2 (06:57→17:43)
[2018-05-21] MEDS: INSULIN LISPRO 100 UNITS/ML SQ PRN ×4 (06:58→21:40)
[2018-05-21 08:05] VITALS: BP 176/119
[2018-05-21] MEDS: DIVALPROEX SODIUM 500 MG ER TABLET PO SCH ×2 (09:16→17:42)
[2018-05-21] MEDS: CARVEDILOL 3.125 MG TABLET PO SCH ×2 (09:16→17:42)
[2018-05-21] MEDS: CloNIDine HCL 0.1 MG TABLET PO PRN (09:16)
[2018-05-21] MEDS: OLANZapine 10 MG TABLET PO SCH ×2 (09:16→17:42)
[2018-05-21 11:39] LABS: GLUCOMETER DEV NAME(LOC) 3EX.; GLUCOSE,POINT OF CARE 163 MG/DL (70-110)
[2018-05-21] MEDS: LORazepam 2 MG TABLET PO PRN (13:24)
[2018-05-21 16:40] LABS: GLUCOMETER DEV NAME(LOC) 3EX.; GLUCOSE,POINT OF CARE 145 MG/DL (70-110)
[2018-05-21 20:31] VITALS: BP 138/83
[2018-05-21 21:08] LABS: GLUCOMETER DEV NAME(LOC) 3EX.; GLUCOSE,POINT OF CARE 144 MG/DL (70-110)
[2018-05-22 06:14] LABS: GLUCOMETER DEV NAME(LOC) 3EX.; GLUCOSE,POINT OF CARE 215 MG/DL (70-110)
[2018-05-22] MEDS: INSULIN LISPRO 100 UNITS/ML SQ PRN ×4 (06:18→21:21)
[2018-05-22] MEDS: MetFORMIN HCL 850 MG TABLET PO SCH ×2 (06:42→16:47)
[2018-05-22] MEDS: LORazepam 2 MG TABLET PO PRN ×2 (08:26→14:28)
[2018-05-22] MEDS: OLANZapine 10 MG TABLET PO SCH ×2 (08:27→16:46)
[2018-05-22] MEDS: DIVALPROEX SODIUM 500 MG ER TABLET PO SCH ×2 (08:27→16:46)
[2018-05-22] MEDS: CARVEDILOL 3.125 MG TABLET PO SCH ×2 (08:27→16:46)
[2018-05-22 08:33] VITALS: BP 164/115
[2018-05-22] MEDS: HALOPERIDOL 5 MG TABLET PO PRN (10:59)
[2018-05-22 11:00] VITALS: BP 164/114
[2018-05-22 11:18] LABS: GLUCOMETER DEV NAME(LOC) 3EX.; GLUCOSE,POINT OF CARE 130 MG/DL (70-110)
[2018-05-22] MEDS: AmLODIPine BESYLATE 5 MG TABLET PO SCH (12:07)
[2018-05-22 14:20] VITALS: BP 161/104
[2018-05-22 16:45] VITALS: BP 166/109
[2018-05-22] MEDS: CloNIDine HCL 0.1 MG TABLET PO PRN (16:45)
[2018-05-22 16:59] LABS: GLUCOMETER DEV NAME(LOC) 3EX.; GLUCOSE,POINT OF CARE 187 MG/DL (70-110)
[2018-05-22 17:13] VITALS: BP 153/106
[2018-05-22 17:45] VITALS: BP 131/73
[2018-05-22 21:24] LABS: GLUCOMETER DEV NAME(LOC) 3EX.; GLUCOSE,POINT OF CARE 182 MG/DL (70-110)
[2018-05-23 06:24] LABS: GLUCOMETER DEV NAME(LOC) 3EX.; GLUCOSE,POINT OF CARE 150 MG/DL (70-110)
[2018-05-23] MEDS: INSULIN LISPRO 100 UNITS/ML SQ PRN ×2 (06:48→11:37)
[2018-05-23 06:57] VITALS: BP 143/93
[2018-05-23] MEDS: MetFORMIN HCL 850 MG TABLET PO SCH (07:14)
[2018-05-23 07:32] LABS: ANION GAP 4 mmol/L (8-16); CALCIUM, TOTAL 8.5 mg/dL (8.8-10.5); CARBON DIOXIDE 34 mmol/L (22-29); CHLORIDE 100 mmol/L (98-107); CREATININE 0.79 mg/dL (0.60-1.30); GLOMERULAR FILTR. RATE CALC > 60 mL/min (>60); GLUCOSE,RANDOM 145 mg/dL (70-110); SODIUM SERUM 138 mmol/L (136-145); UREA NITROGEN, BLOOD 17 mg/dL (7-18)
[2018-05-23 09:40] VITALS: BP 154/80
[2018-05-23] MEDS: AmLODIPine BESYLATE 5 MG TABLET PO SCH (09:45)
[2018-05-23] MEDS: DIVALPROEX SODIUM 500 MG ER TABLET PO SCH (09:45)
[2018-05-23] MEDS: CARVEDILOL 3.125 MG TABLET PO SCH (09:45)
[2018-05-23] MEDS: OLANZapine 10 MG TABLET PO SCH (09:45)
[2018-05-23 11:33] LABS: GLUCOMETER DEV NAME(LOC) 3EX.; GLUCOSE,POINT OF CARE 137 MG/DL (70-110)
== END 2018-05-23 14:50 | disposition home or self-care (01) | DRG 885 ==
LOC: EMS 19:36 → 3EI 05-17 02:59
PROVIDERS: ADMIT Psychiatry & Neurology Child & Adolescent Psychiatry; ATTEND Psychiatry & Neurology Child & Adolescent Psychiatry
DX: F25.1 Schizoaffective disorder, depressive type (principal); R45.851 Suicidal ideations; E87.1 Hypo-osmolality and hyponatremia; F41.9 Anxiety disorder, unspecified; E11.9 Type 2 diabetes mellitus without complications; Z59.0 Homelessness; I10 Essential (primary) hypertension; F17.200 Nicotine dependence, unspecified, uncomplicated; F10.10 Alcohol abuse, uncomplicated; E78.5 Hyperlipidemia, unspecified; F14.90 Cocaine use, unspecified, uncomplicated; G89.29 Other chronic pain; M54.9 Dorsalgia, unspecified
CPT/HCPCS: 83036; 84443; 87081; 94660; 96372; G0480; J1815

== ENCOUNTER 2018-05-28 19:27 | Emergency (ER) | payer MEDICARE, OTHER ==
[~2018-05-28] VITALS: Ht 177.8 cm; Wt 154.6 kg
[2018-05-28] MEDS ORDERED: BACLOFEN 10 MG TABLET PO ONE (19:45)
[2018-05-28] MEDS ORDERED: KETOROLAC TROMETHAMINE 60 MG/2 ML VIAL IM ONE (19:45)
[2018-05-28 19:49] LABS: GLUCOSE,POINT OF CARE 290 MG/DL (70-110)
[2018-05-28] MEDS ORDERED: CloNIDine HCL 0.2 MG TABLET PO ONE (20:45)
[2018-05-28] MEDS ORDERED: NITROGLYCERIN 2% (1 GM=INCH) PACKET TP ONE (20:45)
[2018-05-28 23:22] VITALS: BP 162/90
== END 2018-05-28 23:53 | disposition home or self-care (01) ==
LOC: EMS 19:28
DX: G89.29 Other chronic pain (principal); M54.5 Low back pain; R03.0 Elevated blood-pressure reading, without diagnosis of hypertension; I10 Essential (primary) hypertension; E11.9 Type 2 diabetes mellitus without complications; F31.9 Bipolar disorder, unspecified; F41.9 Anxiety disorder, unspecified; F20.9 Schizophrenia, unspecified; F14.90 Cocaine use, unspecified, uncomplicated; F12.90 Cannabis use, unspecified, uncomplicated; F17.210 Nicotine dependence, cigarettes, uncomplicated; Z79.84 Long term (current) use of oral hypoglycemic drugs
CPT/HCPCS: 82962; 96372; 99284; J1885

== ENCOUNTER 2018-05-29 04:23 | Emergency (ER) | payer MEDICARE, OTHER ==
[~2018-05-29] VITALS: Ht 172.7 cm; Wt 136.4 kg
[2018-05-29 04:39] LABS: GLUCOSE,POINT OF CARE 244 MG/DL (70-110)
[2018-05-29 05:24] LABS: BASOPHILS % (AUTO) 0.9 % (0.0-2.0); EOSINOPHILS % (AUTO) 1.1 % (1.0-6.0); HEMATOCRIT 40.4 % (41-53); HEMOGLOBIN 13.7 g/dL (13.5-17.5); LYMPHOCYTES # (AUTO) 2.8 K/uL (1.0-4.8); LYMPHOCYTES % (AUTO) 33.4 % (22.0-44.0); MEAN CORPUSCULAR HGB CONC 33.8 G/dL (31.0-37.0); MEAN CORPUSCULAR VOLUME 80 fL (80-100); MONOCYTES # (AUTO) 0.4 K/uL (0.1-1.0); MONOCYTES % (AUTO) 5.3 % (2.0-9.0); NEUTROPHILS # (AUTO) 4.9 K/uL (1.8-7.7); NEUTROPHILS % (AUTO) 59.3 % (40.0-70.0); PLATELET COUNT (AUTO) 218 K/uL (150-450); RED BLOOD CELL COUNT(AUTO) 5.07 MIL/uL (4.50-5.90); RED CELL DISTRIBUTION WIDTH 14.9 % (11.5-14.5)
[2018-05-29 05:38] LABS: ANION GAP 6 mmol/L (8-16); CALCIUM, TOTAL 8.6 mg/dL (8.8-10.5); CARBON DIOXIDE 29 mmol/L (22-29); CHLORIDE 99 mmol/L (98-107); CREATININE 0.68 mg/dL (0.60-1.30); GLOMERULAR FILTR. RATE CALC > 60 mL/min (>60); GLUCOSE,RANDOM 261 mg/dL (70-110); POTASSIUM 3.5 mmol/L (3.5-5.1); SODIUM SERUM 134 mmol/L (136-145); UREA NITROGEN, BLOOD 9 mg/dL (7-18)
[2018-05-29 05:43] LABS: ALANINE AMINOTRANSFERASE 54 U/L (12-78); ALBUMIN 3.5 g/dL (3.4-5.0); ALKALINE PHOSPHATASE 79 U/L (46-116); ASPARTATE AMINOTRANSFERASE 41 U/L (15-37); BILIRUBIN,TOTAL 0.6 mg/dL (0.1-1.0); TOTAL PROTEIN, SERUM 7.2 g/dL (6.4-8.2)
[2018-05-29 06:06] LABS: VALPROIC ACID < 3 mcg/mL (50-100)
[2018-05-29 08:37] VITALS: BP 156/87
== END 2018-05-29 08:39 | disposition home or self-care (01) ==
LOC: EMS 04:24
DX: F20.9 Schizophrenia, unspecified (principal); E11.9 Type 2 diabetes mellitus without complications; I10 Essential (primary) hypertension; M54.9 Dorsalgia, unspecified; G89.29 Other chronic pain; F41.9 Anxiety disorder, unspecified; F31.9 Bipolar disorder, unspecified; F17.210 Nicotine dependence, cigarettes, uncomplicated; F12.90 Cannabis use, unspecified, uncomplicated; F11.90 Opioid use, unspecified, uncomplicated; Z79.899 Other long term (current) drug therapy
CPT/HCPCS: 36415; 80053; 80164; 82962; 85025; 99284; G0480

== ENCOUNTER 2018-06-08 10:39 | Emergency (ER) | payer MEDICARE, OTHER ==
[~2018-06-08] VITALS: Ht 177.8 cm; Wt 172.7 kg
[2018-06-08] MEDS ORDERED: INSU100V SQ (10:54)
[2018-06-08] MEDS ORDERED: QUET25TA PO (10:54)
[2018-06-08] MEDS ORDERED: RISPC25 IM (10:54)
[2018-06-08 12:24] LABS: BASOPHILS % (AUTO) 0.8 % (0.0-2.0); EOSINOPHILS % (AUTO) 1.5 % (1.0-6.0); HEMOGLOBIN 13.4 g/dL (13.5-17.5); LYMPHOCYTES # (AUTO) 2.7 K/uL (1.0-4.8); LYMPHOCYTES % (AUTO) 30.9 % (22.0-44.0); MEAN CORPUSCULAR HEMOGLOBIN 26.9 pg (26.0-34.0); MEAN CORPUSCULAR HGB CONC 33.5 G/dL (31.0-37.0); MEAN CORPUSCULAR VOLUME 80 fL (80-100); MONOCYTES # (AUTO) 0.5 K/uL (0.1-1.0); MONOCYTES % (AUTO) 6.1 % (2.0-9.0); NEUTROPHILS # (AUTO) 5.4 K/uL (1.8-7.7); NEUTROPHILS % (AUTO) 60.7 % (40.0-70.0); PLATELET COUNT (AUTO) 214 K/uL (150-450); RED BLOOD CELL COUNT(AUTO) 4.99 MIL/uL (4.50-5.90); RED CELL DISTRIBUTION WIDTH 15.3 % (11.5-14.5)
[2018-06-08 12:35] LABS: ANION GAP 8 mmol/L (8-16); CALCIUM, TOTAL 8.9 mg/dL (8.8-10.5); CARBON DIOXIDE 28 mmol/L (22-29); CHLORIDE 100 mmol/L (98-107); CREATININE 0.88 mg/dL (0.60-1.30); GLOMERULAR FILTR. RATE CALC > 60 mL/min (>60); GLUCOSE,RANDOM 369 mg/dL (70-110); POTASSIUM 4.3 mmol/L (3.5-5.1); SODIUM SERUM 136 mmol/L (136-145); UREA NITROGEN, BLOOD 12 mg/dL (7-18)
[2018-06-08 12:40] LABS: ALANINE AMINOTRANSFERASE 43 U/L (12-78); ALBUMIN 3.2 g/dL (3.4-5.0); ALKALINE PHOSPHATASE 92 U/L (46-116); ASPARTATE AMINOTRANSFERASE 31 U/L (15-37); BILIRUBIN,TOTAL 0.3 mg/dL (0.1-1.0); TOTAL PROTEIN, SERUM 6.7 g/dL (6.4-8.2)
[2018-06-08 12:45] LABS: AMPHET/METH SCREEN,URINE NEGATIVE (NEGATIVE); BARBITURATE SCREEN, URINE NEGATIVE (NEGATIVE); BENZODIAZEPINES SCREEN,URINE NEGATIVE (NEGATIVE); CANNABINOID SCREEN,URINE POSITIVE (NEGATIVE); COCAINE SCREEN,URINE NEGATIVE (NEGATIVE); METHADONE SCREEN, URINE NEGATIVE (NEGATIVE); OPIATE SCREEN,URINE NEGATIVE (NEGATIVE)
[2018-06-08 12:46] LABS: PHENCYCLIDINE SCREEN,URINE NEGATIVE (NEGATIVE)
[2018-06-08 14:06] VITALS: BP 162/105
== END 2018-06-08 14:57 | disposition home or self-care (01) ==
LOC: EMS 10:40
DX: F25.9 Schizoaffective disorder, unspecified (principal); E11.65 Type 2 diabetes mellitus with hyperglycemia; I10 Essential (primary) hypertension; F20.9 Schizophrenia, unspecified; F41.9 Anxiety disorder, unspecified; F32.9 Major depressive disorder, single episode, unspecified; Z79.84 Long term (current) use of oral hypoglycemic drugs; Z79.4 Long term (current) use of insulin; Z79.899 Other long term (current) drug therapy
CPT/HCPCS: 36415; 80053; 80307; 82962; 84484; 85025; 93005; 99284; G0480

== ENCOUNTER 2019-03-21 18:59 | Emergency (ER) | payer MEDICARE, OTHER ==
[~2019-03-21] VITALS: Ht 167.6 cm; Wt 142.7 kg
[~2019-03-21 18:59] MED LIST changes: -AMLO-511 PO; +AMLO5TAB9 PO; +INSU100V SQ; +QUET25TA PO; +RISPC25 IM
[2019-03-21 20:05] LABS: GLUCOSE,POINT OF CARE 150 MG/DL (70-110)
[2019-03-21 20:20] LABS: ANION GAP 7 mmol/L (8-16); CALCIUM, TOTAL 8.5 mg/dL (8.8-10.5); CARBON DIOXIDE 29 mmol/L (22-29); CHLORIDE 103 mmol/L (98-107); CREATININE 0.85 mg/dL (0.60-1.30); GLOMERULAR FILTR. RATE CALC > 60 mL/min (>60); GLUCOSE,RANDOM 157 mg/dL (70-110); POTASSIUM 4.6 mmol/L (3.5-5.1); SODIUM SERUM 139 mmol/L (136-145); UREA NITROGEN, BLOOD 18 mg/dL (7-18)
[2019-03-21 20:26] LABS: ALANINE AMINOTRANSFERASE 31 U/L (12-78); ALBUMIN 3.4 g/dL (3.4-5.0); ALKALINE PHOSPHATASE 79 U/L (46-116); ASPARTATE AMINOTRANSFERASE 34 U/L (15-37); BILIRUBIN,TOTAL 0.5 mg/dL (0.1-1.0)
[2019-03-21 20:33] LABS: APPEARANCE,URINE CLEAR (CLEAR); BILIRUBIN,URINE NEGATIVE (NEGATIVE); GLUCOSE, URINE (UA) NEGATIVE (NEGATIVE); KETONES,URINE NEGATIVE (NEGATIVE); LEUKOCYTE ESTERASE ,URINE NEGATIVE (NEGATIVE); NITRATE,URINE NEGATIVE (NEGATIVE); OCCULT BLOOD,URINE NEGATIVE (NEGATIVE); PROTEIN,URINE TRACE (NEGATIVE)
[2019-03-21 20:39] LABS: AMPHET/METH SCREEN,URINE POSITIVE (NEGATIVE); BARBITURATE SCREEN, URINE NEGATIVE (NEGATIVE); BENZODIAZEPINES SCREEN,URINE NEGATIVE (NEGATIVE); CANNABINOID SCREEN,URINE POSITIVE (NEGATIVE); COCAINE SCREEN,URINE NEGATIVE (NEGATIVE); METHADONE SCREEN, URINE NEGATIVE (NEGATIVE); OPIATE SCREEN,URINE NEGATIVE (NEGATIVE)
[2019-03-21 20:42] LABS: PHENCYCLIDINE SCREEN,URINE NEGATIVE (NEGATIVE)
[2019-03-21 20:44] LABS: BACTERIA,URINE None Seen /HPF (None Seen); RBC,URINE None Seen /HPF (0-2); SQUAMOUS EPITHELIAL CELL,UR Few /LPF (None Seen); WBC,URINE 0-2 /HPF (0-5)
[2019-03-21 20:48] LABS: BASOPHILS % (AUTO) 0.1 % (0.0-2.0); EOSINOPHILS % (AUTO) 3.1 % (1.0-6.0); HEMATOCRIT 42.9 % (41-53); HEMOGLOBIN 14.2 g/dL (13.5-17.5); LYMPHOCYTES # (AUTO) 2.5 K/uL (1.0-4.8); LYMPHOCYTES % (AUTO) 34.3 % (22.0-44.0); MEAN CORPUSCULAR HEMOGLOBIN 26.5 pg (26.0-34.0); MEAN CORPUSCULAR HGB CONC 33.2 G/dL (31.0-37.0); MEAN CORPUSCULAR VOLUME 80 fL (80-100); MONOCYTES # (AUTO) 0.4 K/uL (0.1-1.0); MONOCYTES % (AUTO) 5.9 % (2.0-9.0); NEUTROPHILS # (AUTO) 4.2 K/uL (1.8-7.7); NEUTROPHILS % (AUTO) 56.6 % (40.0-70.0); PLATELET COUNT (AUTO) 212 K/uL (150-450); RED BLOOD CELL COUNT(AUTO) 5.37 MIL/uL (4.50-5.90); RED CELL DISTRIBUTION WIDTH 14.6 % (11.5-14.5)
[2019-03-21 22:30] VITALS: BP 147/92
== END 2019-03-21 22:30 | disposition home or self-care (01) ==
LOC: EMS 19:01
DX: F20.9 Schizophrenia, unspecified (principal); E11.9 Type 2 diabetes mellitus without complications; I10 Essential (primary) hypertension; G89.29 Other chronic pain; F11.90 Opioid use, unspecified, uncomplicated; F12.90 Cannabis use, unspecified, uncomplicated; F41.9 Anxiety disorder, unspecified; F31.9 Bipolar disorder, unspecified; Z79.899 Other long term (current) drug therapy
CPT/HCPCS: 36415; 80053; 80307; 81001; 82962; 85025; 99284; G0480

== ENCOUNTER 2019-03-22 13:32 | Inpatient (IN) | payer MEDICARE, MEDICAID ==
[~2019-03-22] VITALS: Ht 177.8 cm; Wt 136.4 kg
[~2019-03-22 13:32] MED LIST changes: -AMLO5TAB9 PO; -CARV3 PO; -DIVA500T52 PO; -INSU100V SQ; -METF-445 PO; -RISPC25 IM
[2019-03-22] MEDS ORDERED: HALOPERIDOL 5 MG TABLET PO ONE (16:15)
[2019-03-22 16:21] LABS: BASOPHILS % (AUTO) 0.8 % (0.0-2.0); EOSINOPHILS % (AUTO) 2.1 % (1.0-6.0); HEMATOCRIT 41.3 % (41-53); HEMOGLOBIN 13.8 g/dL (13.5-17.5); LYMPHOCYTES # (AUTO) 2.4 K/uL (1.0-4.8); LYMPHOCYTES % (AUTO) 32.7 % (22.0-44.0); MEAN CORPUSCULAR HEMOGLOBIN 26.7 pg (26.0-34.0); MEAN CORPUSCULAR HGB CONC 33.3 G/dL (31.0-37.0); MEAN CORPUSCULAR VOLUME 80 fL (80-100); MONOCYTES # (AUTO) 0.5 K/uL (0.1-1.0); MONOCYTES % (AUTO) 6.6 % (2.0-9.0); NEUTROPHILS # (AUTO) 4.3 K/uL (1.8-7.7); NEUTROPHILS % (AUTO) 57.8 % (40.0-70.0); PLATELET COUNT (AUTO) 232 K/uL (150-450); RED BLOOD CELL COUNT(AUTO) 5.15 MIL/uL (4.50-5.90); RED CELL DISTRIBUTION WIDTH 14.3 % (11.5-14.5)
[2019-03-22 16:37] LABS: ANION GAP 7 mmol/L (8-16); CALCIUM, TOTAL 8.3 mg/dL (8.8-10.5); CARBON DIOXIDE 30 mmol/L (22-29); CHLORIDE 103 mmol/L (98-107); CREATININE 0.91 mg/dL (0.60-1.30); GLOMERULAR FILTR. RATE CALC > 60 mL/min (>60); GLUCOSE,RANDOM 203 mg/dL (70-110); SODIUM SERUM 140 mmol/L (136-145); UREA NITROGEN, BLOOD 11 mg/dL (7-18)
[2019-03-22 16:43] LABS: ALANINE AMINOTRANSFERASE 27 U/L (12-78); ALBUMIN 3.2 g/dL (3.4-5.0); ALKALINE PHOSPHATASE 72 U/L (46-116); ASPARTATE AMINOTRANSFERASE 21 U/L (15-37); BILIRUBIN,TOTAL 0.4 mg/dL (0.1-1.0); TOTAL PROTEIN, SERUM 6.7 g/dL (6.4-8.2)
[2019-03-22] MEDS ORDERED: ZOLPIDEM TARTRATE 10 MG TABLET PO PRN (20:00)
[2019-03-23 02:12] LABS: GLUCOSE,POINT OF CARE 208 MG/DL (70-110)
[2019-03-23 03:43] VITALS: BP 134/89
[2019-03-23] MEDS ORDERED: INFLUENZA VIRUS VACCINE QVS 2019-20 (3YR+)/PF 60 MCG/0.5 ML SYRINGE IM ONE (04:45)
[2019-03-23] MEDS ORDERED: PETROLATUM,WHITE 28 GM JELLY TP PRN (06:30)
[2019-03-23] MEDS ORDERED: MAGNESIUM HYDROXIDE SUSPENSION 30 ML UDCUP PO PRN (06:30)
[2019-03-23] MEDS ORDERED: NICOTINE 14 MG/24 HOUR PATCH TD PRN (06:30)
[2019-03-23] MEDS ORDERED: DOCUSATE SODIUM 100 MG CAPSULE PO PRN (06:30)
[2019-03-23] MEDS ORDERED: GLUCAGON,HUMAN RECOMBINANT 1 MG VIAL IM PRN (06:30)
[2019-03-23] MEDS ORDERED: ALBUTEROL SULFATE HFA 90 MCG/PUFF 8 GM INHALER IH PRN (06:30)
[2019-03-23] MEDS ORDERED: CloNIDine HCL 0.1 MG TABLET PO PRN (06:30)
[2019-03-23] MEDS ORDERED: LOPERAMIDE HCL 2 MG CAPSULE PO PRN (06:30)
[2019-03-23] MEDS ORDERED: ACETAMINOPHEN 325 MG TABLET PO PRN (06:30)
[2019-03-23] MEDS ORDERED: IBUPROFEN 400 MG TABLET PO PRN (06:30)
[2019-03-23] MEDS ORDERED: GuaiFENesin/D-METHORPHAN [SUGAR-FREE] 200-20MG/10 ML SYRUP UDCUP PO PRN (06:30)
[2019-03-23] MEDS ORDERED: ONDANSETRON HCL 4 MG TABLET PO PRN (06:30)
[2019-03-23] MEDS ORDERED: MAG HYDROX/AL HYDROX/SIMETH ES 30 ML SUSPENSION UDCUP PO PRN (06:30)
[2019-03-23 07:00] LABS: GLUCOMETER DEV NAME(LOC) BV2S.; GLUCOSE,POINT OF CARE 183 MG/DL (70-110)
[2019-03-23] MEDS: INSULIN LISPRO 100 UNITS/ML SQ PRN (10:59)
[2019-03-23 11:47] LABS: GLUCOMETER DEV NAME(LOC) BV2S.; GLUCOSE,POINT OF CARE 175 MG/DL (70-110)
[2019-03-23 16:08] VITALS: BP 134/89
[2019-03-23 16:48] LABS: GLUCOMETER DEV NAME(LOC) BV2S.; GLUCOSE,POINT OF CARE 132 MG/DL (70-110)
[2019-03-23] MEDS: OLANZapine 10 MG TABLET PO SCH (16:58)
[2019-03-23 21:00] LABS: GLUCOMETER DEV NAME(LOC) BV2S.; GLUCOSE,POINT OF CARE 137 MG/DL (70-110)
[2019-03-24 01:35] VITALS: BP 139/89
[2019-03-24] MEDS: OLANZapine 10 MG TABLET PO SCH ×2 (08:25→16:08)
[2019-03-24 08:43] VITALS: BP 140/90
[2019-03-24] MEDS: HALOPERIDOL 5 MG TABLET PO PRN ×2 (10:43→17:27)
[2019-03-24] MEDS: INSULIN LISPRO 100 UNITS/ML SQ PRN (10:55)
[2019-03-24 12:09] LABS: GLUCOMETER DEV NAME(LOC) BV2S.; GLUCOSE,POINT OF CARE 175 MG/DL (70-110)
[2019-03-24 16:51] VITALS: BP 135/95
[2019-03-24] MEDS: LORazepam 2 MG TABLET PO PRN (17:27)
[2019-03-25 06:12] LABS: GLUCOMETER DEV NAME(LOC) BV2X.; GLUCOSE,POINT OF CARE 146 MG/DL (70-110)
[2019-03-25] MEDS: INSULIN LISPRO 100 UNITS/ML SQ PRN (07:18)
[2019-03-25] MEDS: OLANZapine 10 MG TABLET PO SCH ×2 (09:14→16:38)
[2019-03-25 11:11] LABS: GLUCOMETER DEV NAME(LOC) BV2S.; GLUCOSE,POINT OF CARE 104 MG/DL (70-110)
[2019-03-25] MEDS: LORazepam 2 MG TABLET PO PRN (12:38)
[2019-03-25] MEDS: HALOPERIDOL 5 MG TABLET PO PRN (12:38)
[2019-03-25 17:10] LABS: GLUCOMETER DEV NAME(LOC) BV2S.; GLUCOSE,POINT OF CARE 101 MG/DL (70-110)
[2019-03-25 18:03] VITALS: BP 140/100
[2019-03-25 21:26] LABS: GLUCOMETER DEV NAME(LOC) BV2S.; GLUCOSE,POINT OF CARE 119 MG/DL (70-110)
[2019-03-26 06:26] LABS: GLUCOMETER DEV NAME(LOC) BV2S.; GLUCOSE,POINT OF CARE 131 MG/DL (70-110)
[2019-03-26 07:09] VITALS: BP 134/78
[2019-03-26 07:22] LABS: CHOL/HDL RATIO 2.5 (4.2-7.3); THYROID STIMULATING HORMONE 5.16 uIU/mL (0.36-3.74)
[2019-03-26] MEDS: OLANZapine 10 MG TABLET PO SCH ×2 (08:22→16:13)
[2019-03-26 11:47] LABS: GLUCOMETER DEV NAME(LOC) BV2S.; GLUCOSE,POINT OF CARE 126 MG/DL (70-110)
[2019-03-26 12:52] VITALS: BP 138/75
[2019-03-26 16:15] VITALS: BP 134/90
[2019-03-26 16:42] LABS: GLUCOMETER DEV NAME(LOC) BV2S.; GLUCOSE,POINT OF CARE 120 MG/DL (70-110)
[2019-03-26 21:58] LABS: GLUCOMETER DEV NAME(LOC) BV2S.; GLUCOSE,POINT OF CARE 129 MG/DL (70-110)
[2019-03-27 00:18] VITALS: BP 140/79
[2019-03-27 06:40] LABS: GLUCOMETER DEV NAME(LOC) BV2S.; GLUCOSE,POINT OF CARE 118 MG/DL (70-110)
[2019-03-27] MEDS: HALOPERIDOL 5 MG TABLET PO PRN (06:42)
[2019-03-27 08:14] VITALS: BP 176/117
[2019-03-27] MEDS: OLANZapine 10 MG TABLET PO SCH (08:19)
[2019-03-27] MEDS ORDERED: OLAN5TAB2 PO (11:09)
== END 2019-03-27 11:25 | disposition home or self-care (01) | DRG 885 ==
LOC: EMS 13:33 → B2S 03-23 02:06
PROVIDERS: ADMIT Psychiatry & Neurology Child & Adolescent Psychiatry; ATTEND Psychiatry & Neurology Child & Adolescent Psychiatry
DX: F25.1 Schizoaffective disorder, depressive type (principal); R45.851 Suicidal ideations; Z68.41 Body mass index [BMI] 40.0-44.9, adult; I10 Essential (primary) hypertension; E11.9 Type 2 diabetes mellitus without complications; G89.29 Other chronic pain; M54.9 Dorsalgia, unspecified; F14.90 Cocaine use, unspecified, uncomplicated; F12.90 Cannabis use, unspecified, uncomplicated; F41.9 Anxiety disorder, unspecified; E66.9 Obesity, unspecified; F31.9 Bipolar disorder, unspecified; Z91.5 Personal history of self-harm; Z59.0 Homelessness; Z79.899 Other long term (current) drug therapy
CPT/HCPCS: 83036; 84443; 90686; G0480

== ENCOUNTER 2019-04-01 08:44 | Inpatient (IN) | payer MEDICARE, MEDICAID ==
[~2019-04-01] VITALS: Ht 182.9 cm; Wt 136.3 kg
[~2019-04-01 08:44] MED LIST changes: -OLAN10TA3 PO; +OLAN5TAB2 PO; -QUET25TA PO
[2019-04-01 09:26] LABS: BASOPHILS % (AUTO) 0.6 % (0.0-2.0); EOSINOPHILS % (AUTO) 2.4 % (1.0-6.0); HEMATOCRIT 39.8 % (41-53); HEMOGLOBIN 13.3 g/dL (13.5-17.5); LYMPHOCYTES # (AUTO) 2.4 K/uL (1.0-4.8); LYMPHOCYTES % (AUTO) 30.9 % (22.0-44.0); MEAN CORPUSCULAR HEMOGLOBIN 26.5 pg (26.0-34.0); MEAN CORPUSCULAR HGB CONC 33.4 G/dL (31.0-37.0); MEAN CORPUSCULAR VOLUME 79 fL (80-100); MONOCYTES # (AUTO) 0.5 K/uL (0.1-1.0); MONOCYTES % (AUTO) 5.9 % (2.0-9.0); NEUTROPHILS # (AUTO) 4.7 K/uL (1.8-7.7); NEUTROPHILS % (AUTO) 60.2 % (40.0-70.0); PLATELET COUNT (AUTO) 227 K/uL (150-450); RED BLOOD CELL COUNT(AUTO) 5.02 MIL/uL (4.50-5.90); RED CELL DISTRIBUTION WIDTH 14.6 % (11.5-14.5)
[2019-04-01 09:38] LABS: ANION GAP 5 mmol/L (8-16); CALCIUM, TOTAL 8.5 mg/dL (8.8-10.5); CARBON DIOXIDE 32 mmol/L (22-29); CHLORIDE 105 mmol/L (98-107); CREATININE 0.99 mg/dL (0.60-1.30); GLOMERULAR FILTR. RATE CALC > 60 mL/min (>60); GLUCOSE,RANDOM 145 mg/dL (70-110); POTASSIUM 3.2 mmol/L (3.5-5.1); SODIUM SERUM 142 mmol/L (136-145); UREA NITROGEN, BLOOD 16 mg/dL (7-18)
[2019-04-01 09:43] LABS: ALANINE AMINOTRANSFERASE 25 U/L (12-78); ALBUMIN 3.2 g/dL (3.4-5.0); ALKALINE PHOSPHATASE 82 U/L (46-116); ASPARTATE AMINOTRANSFERASE 22 U/L (15-37); BILIRUBIN,TOTAL 0.3 mg/dL (0.1-1.0); TOTAL PROTEIN, SERUM 6.5 g/dL (6.4-8.2)
[2019-04-01] MEDS ORDERED: LORazepam 1 MG TABLET PO ONE (10:00)
[2019-04-01] MEDS ORDERED: POTASSIUM CHLORIDE 20 MEQ ER TABLET PO ONE (10:00)
[2019-04-01] MEDS ORDERED: HALOPERIDOL 5 MG TABLET PO ONE (10:00)
[2019-04-01] MEDS ORDERED: DiphenhydrAMINE HCL 25 MG CAPSULE PO ONE (10:00)
[2019-04-01 11:55] LABS: AMPHET/METH SCREEN,URINE POSITIVE (NEGATIVE); BARBITURATE SCREEN, URINE NEGATIVE (NEGATIVE); BENZODIAZEPINES SCREEN,URINE NEGATIVE (NEGATIVE); CANNABINOID SCREEN,URINE POSITIVE (NEGATIVE); COCAINE SCREEN,URINE NEGATIVE (NEGATIVE); METHADONE SCREEN, URINE NEGATIVE (NEGATIVE); OPIATE SCREEN,URINE NEGATIVE (NEGATIVE)
[2019-04-01 11:56] LABS: PHENCYCLIDINE SCREEN,URINE NEGATIVE (NEGATIVE)
[2019-04-01 13:16] LABS: APPEARANCE,URINE CLEAR (CLEAR); BILIRUBIN,URINE NEGATIVE (NEGATIVE); GLUCOSE, URINE (UA) 250 mg/dL (NEGATIVE); KETONES,URINE NEGATIVE (NEGATIVE); LEUKOCYTE ESTERASE ,URINE NEGATIVE (NEGATIVE); NITRATE,URINE NEGATIVE (NEGATIVE); OCCULT BLOOD,URINE NEGATIVE (NEGATIVE); PROTEIN,URINE NEGATIVE (NEGATIVE)
[2019-04-01 13:27] LABS: BACTERIA,URINE None Seen /HPF (None Seen); RBC,URINE None Seen /HPF (0-2); SQUAMOUS EPITHELIAL CELL,UR None Seen /LPF (None Seen); WBC,URINE None Seen /HPF (0-5)
[2019-04-01 19:02] VITALS: BP 183/113
[2019-04-01] MEDS ORDERED: INFLUENZA VIRUS VACCINE QVS 2019-20 (3YR+)/PF 60 MCG/0.5 ML SYRINGE IM ONE (19:15)
[2019-04-01] MEDS ORDERED: PNEUMOCOCCAL VACCINE POLYVALENT 0.5 ML VIAL [PPSV23] IM ONE (19:15)
[2019-04-01 19:20] LABS: GLUCOMETER DEV NAME(LOC) BV2X.; GLUCOSE,POINT OF CARE 169 MG/DL (70-110)
[2019-04-01] MEDS: AmLODIPine BESYLATE 10 MG TABLET PO SCH (20:29)
[2019-04-01 21:43] VITALS: BP 141/81
[2019-04-02 02:32] VITALS: BP 137/90
[2019-04-02 06:17] LABS: GLUCOMETER DEV NAME(LOC) BV2X.; GLUCOSE,POINT OF CARE 156 MG/DL (70-110)
[2019-04-02 08:10] VITALS: BP 140/86
[2019-04-02] MEDS: AmLODIPine BESYLATE 10 MG TABLET PO SCH (08:37)
[2019-04-02] MEDS ORDERED: ONDANSETRON HCL 4 MG TABLET PO PRN (10:00)
[2019-04-02] MEDS ORDERED: PETROLATUM,WHITE 28 GM JELLY TP PRN (10:00)
[2019-04-02] MEDS ORDERED: ALBUTEROL SULFATE HFA 90 MCG/PUFF 8 GM INHALER IH PRN (10:00)
[2019-04-02] MEDS ORDERED: MAGNESIUM HYDROXIDE SUSPENSION 30 ML UDCUP PO PRN (10:00)
[2019-04-02] MEDS ORDERED: DOCUSATE SODIUM 100 MG CAPSULE PO PRN (10:00)
[2019-04-02] MEDS ORDERED: IBUPROFEN 400 MG TABLET PO PRN (10:00)
[2019-04-02] MEDS ORDERED: ACETAMINOPHEN 325 MG TABLET PO PRN (10:00)
[2019-04-02] MEDS ORDERED: CloNIDine HCL 0.1 MG TABLET PO PRN (10:00)
[2019-04-02] MEDS ORDERED: NICOTINE 14 MG/24 HOUR PATCH TD PRN (10:00)
[2019-04-02] MEDS ORDERED: GuaiFENesin/D-METHORPHAN [SUGAR-FREE] 200-20MG/10 ML SYRUP UDCUP PO PRN (10:00)
[2019-04-02] MEDS ORDERED: LOPERAMIDE HCL 2 MG CAPSULE PO PRN (10:00)
[2019-04-02] MEDS ORDERED: MAG HYDROX/AL HYDROX/SIMETH ES 30 ML SUSPENSION UDCUP PO PRN (10:00)
[2019-04-02 16:06] VITALS: BP 145/88
[2019-04-02 16:43] LABS: GLUCOMETER DEV NAME(LOC) BV2X.; GLUCOSE,POINT OF CARE 192 MG/DL (70-110)
[2019-04-02] MEDS: OLANZapine 5 MG TABLET PO SCH (21:11)
[2019-04-03 06:42] LABS: GLUCOMETER DEV NAME(LOC) BV2X.; GLUCOSE,POINT OF CARE 147 MG/DL (70-110)
[2019-04-03 08:19] VITALS: BP 140/79
[2019-04-03] MEDS: OLANZapine 5 MG TABLET PO SCH ×2 (08:27→20:26)
[2019-04-03] MEDS: AmLODIPine BESYLATE 10 MG TABLET PO SCH (08:27)
[2019-04-03 16:01] VITALS: BP 143/79
[2019-04-03 16:33] LABS: GLUCOMETER DEV NAME(LOC) BV2X.; GLUCOSE,POINT OF CARE 144 MG/DL (70-110)
[2019-04-03] MEDS: HALOPERIDOL 5 MG TABLET PO PRN (16:41)
[2019-04-04 06:34] LABS: GLUCOMETER DEV NAME(LOC) BV2X.; GLUCOSE,POINT OF CARE 159 MG/DL (70-110)
[2019-04-04 08:01] VITALS: BP 130/82
[2019-04-04] MEDS: OLANZapine 5 MG TABLET PO SCH ×2 (09:07→21:40)
[2019-04-04] MEDS: AmLODIPine BESYLATE 10 MG TABLET PO SCH (09:07)
[2019-04-04] MEDS: HALOPERIDOL 5 MG TABLET PO PRN (10:01)
[2019-04-04] MEDS: LORazepam 2 MG TABLET PO PRN (10:01)
[2019-04-04 17:28] VITALS: BP 143/87
[2019-04-04 18:06] LABS: GLUCOMETER DEV NAME(LOC) BV2X.; GLUCOSE,POINT OF CARE 201 MG/DL (70-110)
[2019-04-04 22:14] LABS: GLUCOMETER DEV NAME(LOC) BV2X.; GLUCOSE,POINT OF CARE 152 MG/DL (70-110)
[2019-04-05 04:57] VITALS: BP 150/94
[2019-04-05 05:12] VITALS: BP 142/80
[2019-04-05 06:35] LABS: GLUCOMETER DEV NAME(LOC) BV2X.; GLUCOSE,POINT OF CARE 153 MG/DL (70-110)
[2019-04-05 07:57] LABS: CHOL/HDL RATIO 2.7 (4.2-7.3); FREE T4 (FREE THYROXINE) 1.2 ng/dL (0.76-1.46); POTASSIUM 3.6 mmol/L (3.5-5.1); THYROID STIMULATING HORMONE 4.4 uIU/mL (0.36-3.74)
[2019-04-05 08:09] VITALS: BP 136/86
[2019-04-05] MEDS: AmLODIPine BESYLATE 10 MG TABLET PO SCH (08:45)
[2019-04-05] MEDS: OLANZapine 5 MG TABLET PO SCH (08:45)
[2019-04-05] MEDS ORDERED: OLANZapine 5 MG TABLET PO ONE (12:00)
[2019-04-05] MEDS ORDERED: OLANZapine 10 MG TABLET PO SCH (16:00)
[2019-04-05 16:41] LABS: GLUCOMETER DEV NAME(LOC) BV2X.; GLUCOSE,POINT OF CARE 143 MG/DL (70-110)
[2019-04-05 17:30] VITALS: BP 131/79
[2019-04-05] MEDS: OLANZapine 10 MG TABLET PO SCH (21:00)
[2019-04-06 06:37] LABS: GLUCOMETER DEV NAME(LOC) BV2X.; GLUCOSE,POINT OF CARE 146 MG/DL (70-110)
[2019-04-06 08:04] VITALS: BP 138/89
[2019-04-06] MEDS: AmLODIPine BESYLATE 10 MG TABLET PO SCH (09:04)
[2019-04-06] MEDS: OLANZapine 10 MG TABLET PO SCH ×2 (09:05→20:29)
[2019-04-06 16:01] VITALS: BP 139/83
[2019-04-06 16:39] LABS: GLUCOMETER DEV NAME(LOC) BV2X.; GLUCOSE,POINT OF CARE 180 MG/DL (70-110)
[2019-04-07] MEDS: LORazepam 2 MG TABLET PO PRN (06:54)
[2019-04-07] MEDS: HALOPERIDOL 5 MG TABLET PO PRN ×2 (06:54→16:05)
[2019-04-07 06:58] LABS: GLUCOMETER DEV NAME(LOC) BV2X.; GLUCOSE,POINT OF CARE 166 MG/DL (70-110)
[2019-04-07] MEDS: AmLODIPine BESYLATE 10 MG TABLET PO SCH (08:02)
[2019-04-07] MEDS: OLANZapine 10 MG TABLET PO SCH ×2 (08:02→20:00)
[2019-04-07 08:17] VITALS: BP 132/90
[2019-04-07 16:01] VITALS: BP 137/84
[2019-04-07 16:15] LABS: GLUCOMETER DEV NAME(LOC) BV2X.; GLUCOSE,POINT OF CARE 258 MG/DL (70-110)
[2019-04-07] MEDS: ZOLPIDEM TARTRATE 10 MG TABLET PO PRN ×2 (22:30→22:31)
[2019-04-08 00:10] VITALS: BP 125/68
[2019-04-08 06:23] LABS: GLUCOMETER DEV NAME(LOC) BV2X.; GLUCOSE,POINT OF CARE 137 MG/DL (70-110)
[2019-04-08 08:06] VITALS: BP 160/109
[2019-04-08] MEDS: OLANZapine 10 MG TABLET PO SCH ×2 (09:18→20:11)
[2019-04-08] MEDS: AmLODIPine BESYLATE 10 MG TABLET PO SCH (09:18)
[2019-04-08 10:13] VITALS: BP 139/98
[2019-04-08] MEDS: LORazepam 2 MG TABLET PO PRN (14:32)
[2019-04-08 16:01] VITALS: BP 133/74
[2019-04-09 06:39] LABS: GLUCOMETER DEV NAME(LOC) BV2X.; GLUCOSE,POINT OF CARE 208 MG/DL (70-110)
[2019-04-09] MEDS: OLANZapine 10 MG TABLET PO SCH ×2 (08:52→20:28)
[2019-04-09] MEDS: AmLODIPine BESYLATE 10 MG TABLET PO SCH (08:52)
[2019-04-09 09:38] VITALS: BP 157/95
[2019-04-09 16:01] VITALS: BP 123/84
[2019-04-09 16:53] LABS: GLUCOMETER DEV NAME(LOC) BV2X.; GLUCOSE,POINT OF CARE 297 MG/DL (70-110)
[2019-04-10 06:43] VITALS: BP 128/84
[2019-04-10 07:01] LABS: GLUCOMETER DEV NAME(LOC) BV2X.; GLUCOSE,POINT OF CARE 175 MG/DL (70-110)
[2019-04-10] MEDS: HALOPERIDOL 5 MG TABLET PO PRN (07:21)
[2019-04-10 08:14] VITALS: BP 140/74
[2019-04-10] MEDS: OLANZapine 10 MG TABLET PO SCH ×2 (08:55→20:12)
[2019-04-10] MEDS: AmLODIPine BESYLATE 10 MG TABLET PO SCH (08:55)
[2019-04-10 16:00] VITALS: BP 158/88
[2019-04-10] MEDS: LORazepam 2 MG TABLET PO PRN (16:50)
[2019-04-11 00:06] VITALS: BP 145/90
[2019-04-11 06:37] LABS: GLUCOMETER DEV NAME(LOC) BV2X.; GLUCOSE,POINT OF CARE 165 MG/DL (70-110)
[2019-04-11] MEDS: MetFORMIN HCL 500 MG TABLET PO SCH (06:45)
[2019-04-11] MEDS: LORazepam 2 MG TABLET PO PRN (06:52)
[2019-04-11] MEDS: HALOPERIDOL 5 MG TABLET PO PRN ×2 (06:52→11:52)
[2019-04-11] MEDS: OLANZapine 10 MG TABLET PO SCH ×2 (08:22→20:30)
[2019-04-11] MEDS: AmLODIPine BESYLATE 10 MG TABLET PO SCH (08:22)
[2019-04-11 10:31] VITALS: BP 145/83
[2019-04-11 16:02] VITALS: BP 124/98
[2019-04-11 16:33] LABS: GLUCOMETER DEV NAME(LOC) BV2X.; GLUCOSE,POINT OF CARE 260 MG/DL (70-110)
[2019-04-12 00:42] VITALS: BP 139/93
[2019-04-12 06:37] LABS: GLUCOMETER DEV NAME(LOC) BV2X.; GLUCOSE,POINT OF CARE 191 MG/DL (70-110)
[2019-04-12] MEDS: MetFORMIN HCL 500 MG TABLET PO SCH (06:49)
[2019-04-12] MEDS: OLANZapine 10 MG TABLET PO SCH ×2 (08:03→20:33)
[2019-04-12] MEDS: AmLODIPine BESYLATE 10 MG TABLET PO SCH (08:03)
[2019-04-12] MEDS: LORazepam 2 MG TABLET PO PRN (08:06)
[2019-04-12 08:20] VITALS: BP 140/83
[2019-04-12 16:05] VITALS: BP 137/89
[2019-04-12 16:58] LABS: GLUCOMETER DEV NAME(LOC) BV2X.; GLUCOSE,POINT OF CARE 274 MG/DL (70-110)
[2019-04-13 00:10] VITALS: BP 139/93
[2019-04-13] MEDS: MetFORMIN HCL 500 MG TABLET PO SCH (06:32)
[2019-04-13 06:41] LABS: GLUCOMETER DEV NAME(LOC) BV2X.; GLUCOSE,POINT OF CARE 193 MG/DL (70-110)
[2019-04-13] MEDS: OLANZapine 10 MG TABLET PO SCH ×2 (08:03→20:51)
[2019-04-13] MEDS: AmLODIPine BESYLATE 10 MG TABLET PO SCH (08:03)
[2019-04-13 08:32] VITALS: BP 127/76
[2019-04-13 11:05] LABS: GLUCOMETER DEV NAME(LOC) BV2X.; GLUCOSE,POINT OF CARE 197 MG/DL (70-110)
[2019-04-13] MEDS: LORazepam 2 MG TABLET PO PRN (14:37)
[2019-04-13 16:02] VITALS: BP 131/86
[2019-04-13 17:18] LABS: GLUCOMETER DEV NAME(LOC) BV2X.; GLUCOSE,POINT OF CARE 286 MG/DL (70-110)
[2019-04-14] MEDS: MetFORMIN HCL 500 MG TABLET PO SCH (06:27)
[2019-04-14 06:35] LABS: GLUCOMETER DEV NAME(LOC) BV2X.; GLUCOSE,POINT OF CARE 180 MG/DL (70-110)
[2019-04-14 08:44] VITALS: BP 140/84
[2019-04-14] MEDS: AmLODIPine BESYLATE 10 MG TABLET PO SCH (09:07)
[2019-04-14] MEDS: OLANZapine 10 MG TABLET PO SCH ×2 (09:07→20:33)
[2019-04-14] MEDS: HALOPERIDOL 5 MG TABLET PO PRN ×2 (10:33→16:29)
[2019-04-14 16:19] LABS: GLUCOMETER DEV NAME(LOC) BV2X.; GLUCOSE,POINT OF CARE 196 MG/DL (70-110)
[2019-04-14 16:26] VITALS: BP 144/89
[2019-04-15 00:05] VITALS: BP 130/83
[2019-04-15] MEDS: MetFORMIN HCL 500 MG TABLET PO SCH (06:36)
[2019-04-15 06:46] LABS: GLUCOMETER DEV NAME(LOC) BV2X.; GLUCOSE,POINT OF CARE 205 MG/DL (70-110)
[2019-04-15 08:03] VITALS: BP 140/92
[2019-04-15] MEDS: OLANZapine 10 MG TABLET PO SCH ×2 (08:05→20:28)
[2019-04-15] MEDS: AmLODIPine BESYLATE 10 MG TABLET PO SCH (08:06)
[2019-04-15] MEDS: HALOPERIDOL 5 MG TABLET PO PRN ×2 (09:33→16:56)
[2019-04-15 16:01] VITALS: BP 136/89
[2019-04-15 16:18] LABS: GLUCOMETER DEV NAME(LOC) BV2X.; GLUCOSE,POINT OF CARE 238 MG/DL (70-110)
[2019-04-16 03:20] VITALS: BP 135/81
[2019-04-16] MEDS: MetFORMIN HCL 500 MG TABLET PO SCH (06:16)
[2019-04-16 06:21] LABS: GLUCOMETER DEV NAME(LOC) BV2X.; GLUCOSE,POINT OF CARE 216 MG/DL (70-110)
[2019-04-16] MEDS: AmLODIPine BESYLATE 10 MG TABLET PO SCH (08:02)
[2019-04-16] MEDS: OLANZapine 10 MG TABLET PO SCH ×2 (08:03→20:06)
[2019-04-16 08:14] VITALS: BP 140/90
[2019-04-16] MEDS: HALOPERIDOL 5 MG TABLET PO PRN (13:55)
[2019-04-16] MEDS: LORazepam 2 MG TABLET PO PRN (13:55)
[2019-04-16 15:54] LABS: GLUCOMETER DEV NAME(LOC) BV2S.; GLUCOSE,POINT OF CARE 257 MG/DL (70-110)
[2019-04-16 16:01] VITALS: BP 145/92
[2019-04-17 00:21] VITALS: BP 133/84
[2019-04-17 06:27] LABS: GLUCOMETER DEV NAME(LOC) BV2X.; GLUCOSE,POINT OF CARE 219 MG/DL (70-110)
[2019-04-17] MEDS: MetFORMIN HCL 500 MG TABLET PO SCH (06:36)
[2019-04-17 08:02] VITALS: BP 117/62
[2019-04-17] MEDS: AmLODIPine BESYLATE 10 MG TABLET PO SCH (08:33)
[2019-04-17] MEDS: OLANZapine 10 MG TABLET PO SCH (08:33)
[2019-04-17] MEDS: LORazepam 2 MG TABLET PO PRN (13:32)
[2019-04-17] MEDS ORDERED: AMLO10TA7 PO (14:58)
[2019-04-17] MEDS ORDERED: METF-960 PO (14:58)
[2019-04-17 16:14] VITALS: BP 139/72
== END 2019-04-17 14:55 | disposition home or self-care (01) | DRG 885 ==
LOC: EMS 08:47 → B2X 17:43
PROVIDERS: ATTEND Psychiatry & Neurology Child & Adolescent Psychiatry
DX: F25.0 Schizoaffective disorder, bipolar type (principal); R45.851 Suicidal ideations; D64.9 Anemia, unspecified; E11.9 Type 2 diabetes mellitus without complications; E87.6 Hypokalemia; F41.9 Anxiety disorder, unspecified; G89.29 Other chronic pain; M54.9 Dorsalgia, unspecified; F15.10 Other stimulant abuse, uncomplicated; F14.10 Cocaine abuse, uncomplicated; F12.10 Cannabis abuse, uncomplicated; F10.10 Alcohol abuse, uncomplicated; F11.10 Opioid abuse, uncomplicated; I10 Essential (primary) hypertension; Z59.0 Homelessness; Z91.14 Patient's other noncompliance with medication regimen; Z91.5 Personal history of self-harm; Z28.21 Immunization not carried out because of patient refusal; Z79.899 Other long term (current) drug therapy; Z71.51 Drug abuse counseling and surveillance of drug abuser; Z71.41 Alcohol abuse counseling and surveillance of alcoholic
CPT/HCPCS: 83036; 84132; 84439; 84443; 87081; G0480